=== PATIENT | male | born 1980 | race Caucasian/White ===

== ENCOUNTER 2019-06-14 09:56 | Outpatient (CLI) | payer MEDICARE, MEDICAID, SELFPAY ==
--- NOTE | ~2019-06-14 | CT_ITS ---
EXAMINATION: CT brain wo/w con EXAM DATE: 06/14/2019 10:59 INDICATION: Temporary in awareness, hallucination. TECHNIQUE: Spiral CT of the head was performed without contrast. Axial, coronal and sagittal images were reviewed. Patient was then injected with 100 cc Omnipaque 350 intravenous contrast and reimaged. Postcontrast axial, coronal, sagittal reformatted images reviewed. The dose-length product (DLP) fo r this examination was 1210.67 mGy-cm. The exposure was tailored according to patient size, and iter ative reconstruction (ASIR) was used as additional dose reduction technique. There is no prior study for comparison. 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 This is a congenital finding. There is a thin corpus callosum. There are prominent bilateral ex tra-axial spaces. There is a right frontal ventricular shunt with decompressed ventricles. There is a nother structure which could be a shunt tip in the right frontal horn of the lateral ventricle. No ac lizette intracranial hemorrhage. No evidence of brain mass. There are no areas of abnormal enhancement on the post contrast images. IMPRESSION: 1. No acute intracranial findings. Right frontal shunt in position. Another shunt tip in right later al ventricle. 2. 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 Reviewed, dictated and finalized at location A. OMER PROFESSIONAL IMPRESSION: 1. No acute intracranial findings. Right frontal shunt in position. Another sh unt tip in right lateral ventricle. 2. 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
--- NOTE | ~2019-06-14 | XR_ITS ---
XR shunt series 06/14/2019 10:30 Indication: Hallucinations. Procedure: Shunt series including images of the skull, neck, chest, abdomen and pelvis Comparison: CT dated 06/14/2009 Findings: There is a ventriculoperitoneal shunt extending from the intracranial ventricular system al grzegorz the right head, neck and chest extending into the abdomen. The distal aspect of the shunt is coil ed in the pelvis. No evidence for shunt discontinuity. There is a residual segment of catheter overly ing the right neck at the mastoid level. Lung parenchyma is unremarkable. Bowel pattern is nonobstruc tive. No acute osseous abnormality. Impression: 1: Unremarkable ventriculoperitoneal shunt. No evidence for discontinuity. Reviewed, dictated and finalized at location A. GLOSSER Impression: 1: Unremarkable ventriculoperitoneal shunt. No evidence for discontinuity.
== END 2019-06-14 09:57 | disposition home or self-care (01) ==
PROVIDERS: PCP Internal Medicine; Visit Provider Psychiatry & Neurology Neurology
DX: R44.3 Hallucinations, unspecified (principal); G93.5 Compression of brain
CPT/HCPCS: 70250; 70470; 71045; 74018; Q9967

== ENCOUNTER 2020-11-13 01:16 | Day surgery (SDC) | payer MEDICARE, MEDICAID, SELFPAY ==
[2020-11-06 09:57] VITALS: BMI 30.6
--- NOTE | 2020-11-12 08:57 | PC.NURSE ---
DR. 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
[2020-11-13] MEDS: LACTATED RINGERS 1,000 ML 150 ML IV CONT (09:21)
[2020-11-13 09:25] VITALS: BP 116/65; PULSE 79; RESP 18; TEMP 36.1; O2SAT 96; BMI 29.8
--- NOTE | 2020-11-13 10:01 | WPDANESEPPF ---
Anes - Initial Pre Proc Eval Procedure: Operation Date: 11/13/20 09:30 Proposed Procedures p Esophagogastroduodenoscopy - Milton Roberto MD Date/Time: 11/13/20 10:01 Surgeon: Milton Roberto MD Pre Op Diagnosis: GERD Patient Data Age: 40 Gender: M Height: 1.63 m Weight: 78.8 kg Last Vital Signs Temp 96.9 F L 11/13/20 09:25 Pulse 79 11/13/20 09:25 Resp 18 11/13/20 09:25 BP 116/65 11/13/20 09:25 Pulse Ox 96 11/13/20 09:25 Allergies Allergy/AdvReac Type Severity Reaction Status Date / Time banana Allergy Mild runny Verified 11/13/20 09:22 stools latex Allergy Unknown Hives Verified 11/13/20 09:22 Sulfa (Sulfonamide Allergy Unknown rash Verified 11/13/20 09:22 Antibiotics) Home Medications Medication Instructions Recorded Confirmed Type acetaminophen 325 mg tablet 650 mg PO Q4H PRN tablet 04/11/19 11/06/20 History alendronate 70 mg tablet 70 mg PO WEEKLY 04/11/19 11/06/20 History cetirizine 10 mg tablet 10 mg PO DAILY 04/11/19 11/06/20 History fluoxetine 40 mg capsule 40 mg PO QAM 04/11/19 11/06/20 History olanzapine 20 mg tablet 20 mg PO HS 04/11/19 11/06/20 History baclofen 10 mg tablet 10 mg PO Q8H PRN tablet 02/28/20 11/06/20 History pantoprazole 40 mg tablet,delayed 40 mg PO QAM #90 tablet 02/28/20 11/06/20 Rx release tramadol 50 mg tablet 50 mg PO Q8H PRN #30 tablet 09/11/20 11/06/20 Rx divalproex 250 mg tablet,delayed 250 mg PO QPM tablet 09/23/20 11/06/20 History release magnesium hydroxide 400 mg/5 mL 30 ml PO DAILY PRN 09/23/20 11/06/20 History oral suspension alum-mag hydroxide-simeth 15 ml PO Q2H PRN 11/06/20 11/06/20 History [Olimpia-Lanta] cholecalciferol (vitamin D3) 125 mcg PO DAILY 11/06/20 11/06/20 History [Vitamin D3] dextromethorphan-guaifenesin 15 ml PO Q4H PRN 11/06/20 11/06/20 History [Robafen DM Cough-Chest Congest] docusate sodium 100 mg PO BID PRN 11/06/20 11/06/20 History fluticasone propionate 1 spray INTRANASAL DAILY 11/06/20 11/06/20 History lorazepam 1 mg tablet 1.5 mg PO QHS #45 tablet 11/06/20 11/13/20 Rx melatonin 5 mg PO HS 11/06/20 11/06/20 History multivitamin with folic acid 1 tablet PO DAILY 11/06/20 11/06/20 History [Tab-A-Hemant] polyethylene glycol 3350 17 g PO 2XW PRN 11/06/20 11/06/20 History sennosides [senna] 17.2 mg PO DAILY PRN 11/06/20 11/06/20 History Patient hx anesthesia problems: none Family hx anesthesia problems: none PMFSH Past Medical History Medical History (Updated 11/13/20 @ 10:01 by Matthew Arthur MD) Cerebral palsy Gastro-esophageal reflux disease without esophagitis Post-traumatic stress disorder, unspecified Spina bifida, unspecified Surgical History Surgical History (Updated 11/13/20 @ 10:01 by Matthew Arthur MD) History of brain shunt Family History Family History Mother Diabetes mellitus Family history of bipolar disorder Family history of type 2 diabetes mellitus Father Family history of bipolar disorder Sibling Family history of bipolar disorder Family history of gastrointestinal disorder Social History Social History (Updated 10/16/20 @ 13:00 by Elizabeth Arthur MA) Smoking packs per day: 0.40 Smoking cigarettes per day: 8.0 Years smoked: 15 Smoking pack-years: 6.00 Smoking status: Current some day smoker Tobacco type: cigars Second hand tobacco smoke exposure: No Alcohol intake: never Substance use: never Substance use type: does not use Living arrangements: with roommate(s) Spiritual care concerns: No Anes - Eval Final PreProcedure Day of Procedure 11/13/20 10:01 Patient weight: normal Heart: regular rate and rhythm Lungs: clear to auscultation Airway: Mallampati scale class II Neurological: alert and oriented Last oral intake: >/= 8 hours ASA classification: III Emergent: no Anesthetic plan: proceed Anesthesia type and monitoring: general GIVS and saleem
--- NOTE | 2020-11-13 10:07 | PM.HPGS ---
History of Present Illness History of Present Illness Consent: Risks, benefits, and alternatives have been discussed and questions answered. Patient agrees to proceed with procedure. Chief complaint: GERD Narrative: Sid Lopez is a 40 year old male referred for investigation of anemia, suspected gastrointestinal blood loss Review of Systems Review of Systems: All systems reviewed & are unremarkable except as noted in HPI and below PMFSH Past Medical History Medical History Cerebral palsy Gastro-esophageal reflux disease without esophagitis Post-traumatic stress disorder, unspecified Spina bifida, unspecified Surgical History Surgical History History of brain shunt Family History Family History Mother Diabetes mellitus Family history of bipolar disorder Family history of type 2 diabetes mellitus Father Family history of bipolar disorder Sibling Family history of bipolar disorder Family history of gastrointestinal disorder Social History Social History Smoking packs per day: 0.40 Smoking cigarettes per day: 8.0 Years smoked: 15 Smoking pack-years: 6.00 Smoking status: Current some day smoker Tobacco type: cigars Second hand tobacco smoke exposure: No Alcohol intake: never Substance use: never Substance use type: does not use Living arrangements: with roommate(s) Spiritual care concerns: No Meds Home Medications and Allergies Home Medications Medication Instructions Recorded Confirmed Type acetaminophen 325 mg tablet 650 mg PO Q4H PRN tablet 04/11/19 11/06/20 History alendronate 70 mg tablet 70 mg PO WEEKLY 04/11/19 11/06/20 History cetirizine 10 mg tablet 10 mg PO DAILY 04/11/19 11/06/20 History fluoxetine 40 mg capsule 40 mg PO QAM 04/11/19 11/06/20 History olanzapine 20 mg tablet 20 mg PO HS 04/11/19 11/06/20 History baclofen 10 mg tablet 10 mg PO Q8H PRN tablet 02/28/20 11/06/20 History pantoprazole 40 mg tablet,delayed 40 mg PO QAM #90 tablet 02/28/20 11/06/20 Rx release tramadol 50 mg tablet 50 mg PO Q8H PRN #30 tablet 09/11/20 11/06/20 Rx divalproex 250 mg tablet,delayed 250 mg PO QPM tablet 09/23/20 11/06/20 History release magnesium hydroxide 400 mg/5 mL 30 ml PO DAILY PRN 09/23/20 11/06/20 History oral suspension alum-mag hydroxide-simeth 15 ml PO Q2H PRN 11/06/20 11/06/20 History [Olimpia-Lanta] cholecalciferol (vitamin D3) 125 mcg PO DAILY 11/06/20 11/06/20 History [Vitamin D3] dextromethorphan-guaifenesin 15 ml PO Q4H PRN 11/06/20 11/06/20 History [Robafen DM Cough-Chest Congest] docusate sodium 100 mg PO BID PRN 11/06/20 11/06/20 History fluticasone propionate 1 spray INTRANASAL DAILY 11/06/20 11/06/20 History lorazepam 1 mg tablet 1.5 mg PO QHS #45 tablet 11/06/20 11/13/20 Rx melatonin 5 mg PO HS 11/06/20 11/06/20 History multivitamin with folic acid 1 tablet PO DAILY 11/06/20 11/06/20 History [Tab-A-Hemant] polyethylene glycol 3350 17 g PO 2XW PRN 11/06/20 11/06/20 History sennosides [senna] 17.2 mg PO DAILY PRN 11/06/20 11/06/20 History Allergies Allergy/AdvReac Type Severity Reaction Status Date / Time banana Allergy Mild runny Verified 11/13/20 09:22 stools latex Allergy Unknown Hives Verified 11/13/20 09:22 Sulfa (Sulfonamide Allergy Unknown rash Verified 11/13/20 09:22 Antibiotics) Vital Signs Vital Signs - 24 hr 11/13/20 09:25 Temperature 36.1 C L Pulse Rate 79 Respiratory Rate 18 Blood Pressure 116/65 Pulse Oximetry 96 Exam Const: General: alert Orientation/consciousness: patient oriented x3 Resp: Auscultation: clear to auscultation bilaterally Cardio: Rhythm: regular rhythm GI: GI Palp: Yes Soft to palpation and No Tenderness to palpation present (GI) Neuro: General: p
[2020-11-13 10:18] VITALS: BP 102/68; PULSE 71; RESP 19; O2SAT 93
[2020-11-13 10:28] VITALS: BP 103/68; PULSE 72; RESP 19; O2SAT 95
== END 2020-11-13 11:00 | disposition home or self-care (01) ==
PROVIDERS: PCP Internal Medicine; Visit Provider Internal Medicine Gastroenterology
PROC: 0DJ08ZZ Inspection of Upper Intestinal Tract, Via Natural or Artificial Opening Endoscopic (ICD-10-PCS; CPT 43235; principal; 2020-11-13 09:30)
DX: D50.9 Iron deficiency anemia, unspecified (principal); K21.9 Gastro-esophageal reflux disease without esophagitis; G80.9 Cerebral palsy, unspecified; F43.10 Post-traumatic stress disorder, unspecified; Q05.9 Spina bifida, unspecified; F17.210 Nicotine dependence, cigarettes, uncomplicated
CPT/HCPCS: 43239; 88305; J2704; J7120

== ENCOUNTER 2020-11-30 10:00 | Outpatient (CLI) | payer MEDICARE, MEDICAID, SELFPAY ==
--- NOTE | ~2020-11-30 | DEXA_ITS ---
Bone Density Report Name: Sid Lopez Age: 40 Sex: Male Ethnicity: White Date of : 1980 Indication: osteopenia; monitoring treatment; height loss; prior fracture; seizure disorder; Referring Provider: BALDEMAR ONEAL Study: Bone densitometry was performed. Exam Date: November 30, 2020 Accession number: [id number] Bone Density: Region BMD T-score Z-score Classification AP Spine (L1-L4) 0.823 -2.4 -2.3 Osteopenia Femoral Neck (Left) 0.603 -2.4 -1.9 Osteopenia Total Hip (Left) 0.669 -2.4 -2.2 Osteopenia Total Hip Bilateral Avg 0.716 -2.1 -1.9 Osteopenia Femoral Neck (Right) 0.611 -2.3 -1.9 Osteopenia Total Hip (Right) 0.761 -1.8 -1.6 Osteopenia World Health Organization criteria for BMD impression classify patients as: Normal (T-score at or above -1.0), Osteopenia (T-score between -1.0 and -2.5), or Osteoporosis (T-score at or below -2.5). 10-year Fracture Risk: FRAX not reported because: Man under age 50 Treated for osteoporosis Previous Exams: Region Exam Age BMD T-score BMD Change BMD Change Date g/cm2 vs Baseline vs Previous AP Spine(L1-L4) 11/30/2020 40 0.823 -2.4 -0.062(-7.0%)# -0.062(-7.0%)# 10/23/2017 37 0.885 -1.9 Total Hip(Left) 11/30/2020 40 0.669 -2.4 -0.064(-8.7%)* -0.064(-8.7%)* 10/23/2017 37 0.733 -2.0 Total Hip(Right) 11/30/2020 40 0.761 -1.8 0.010(1.3%) 0.010(1.3%) 10/23/2017 37 0.752 -1.9 *Denotes significance at 95% confidence level, LSC for AP Spine = 0.022 g/cm2, LSC for Total Hip = 0.027 g/cm2 Clinical Information Provided by Patient: Has had a low trauma fracture Smokes Is being treated for osteoporosis Has used the following medications: Vitamin D, Calcium Has the following medical conditions: Any Seizure Disorders Patient maximum height was 67 No regular weight bearing exercise Drinks caffeinated beverages Impression: The patient's bone mass is below expected range for age, gender and ethnicity based on the Total Spine Z-score. The patient has risk factors, including: smoking, previous fracture. The BMD for the Total Hip(Left) decreased, changing by -8.7% since the last DXA exam. Discussion: SIGNIFICANT BONE LOSS OBSERVED. Adherence to therapy (including calcium and vitamin D intake) should be assessed. If compliance is not a factor, review management and exclusion of secondary causes of bone loss. It is important to ask patients whether they are taking their medications and to encourage continued
== END 2020-11-30 10:01 | disposition home or self-care (01) ==
LOC: ANHIMG 10:01
PROVIDERS: PCP Internal Medicine; Visit Provider Internal Medicine
DX: M81.0 Age-related osteoporosis without current pathological fracture (principal); M85.89 Other specified disorders of bone density and structure, multiple sites
CPT/HCPCS: 77080

== ENCOUNTER 2023-01-04 12:37 | Emergency (ER) | payer MEDICARE, MEDICAID, SELFPAY ==
--- NOTE | ~2023-01-04 | CT_ITS ---
EXAMINATION: CT abdomen pelvis w con DATE: 01/04/2023 14:21 INDICATION: Abdomen pain. Tarry stools. TECHNIQUE: Computed tomography (CT) of the abdomen and pelvis was performed with 100 cc Omnipaque 350 intravenous contrast. The dose-length product was 455.72 mGy-cm. Automated exposure control and iterative reconstruction technique were employed. COMPARISON: None. FINDINGS: Lung bases unremarkable. Heart size normal. No significant pleural or pericardial effusion. Fatty infiltration of the liver. The spleen, pancreas, adrenal glands and kidneys are unremarkable. Gallbladder is present. There is a ventral hernia containing fat and nonobstructed segment of colon. There is a ventriculoperitoneal shunt coiled in the pelvis. Small amount of free fluid in the pelvis. Moderate colonic fecal loading in the distal colon and rectum. No free air. No significant vascular abnormality. Bladder wall is thickened. No lymphadenopathy. IMPRESSION: 1. Bladder wall thickening, suspicious for cystitis. Small amount of free fluid in the pelvis. 2: Ventral abdominal wall hernia containing fat and nonobstructed colon. Reviewed, dictated and finalized at location B.
[2023-01-04 12:46] VITALS: BP 120/75; PULSE 89; RESP 20; TEMP 36.8; O2SAT 99
[2023-01-04 13:16] LABS: Basophils Percent Auto 0.6 % (0.2-1.2); Eosinophils Absolute Auto 0.3 K/mm3 (0-0.3); Eosinophils Percent Auto 4.5 % (0-4.4); Hematocrit 43.5 % (42.0-52.0); Hemoglobin 14.2 g/dL (14.0-18.0); Immature Granulocyte Absolute 0.02 K/mm3 (0.00-0.031); Immature Granulocyte Percent A 0.3 % (0-0.5); Lymphocytes Absolute Auto 1.22 K/mm3 (0.9-3.2); Lymphocytes Percent Auto 18.7 % (18.3-44.2); Mean Corpuscular HGB Conc 32.6 g/dl (32-36); Mean Corpuscular Hemoglobin 32.6 pg (26-34); Mean Platelet Volume 9.2 fl (7.4-10.4); Monocytes Absolute Auto 0.5 K/mm3 (0.1-0.6); Monocytes Percent Auto 8.3 % (2.6-8.5); Neutrophils Absolute Auto 4.4 K/mm3 (1.3-6.7); Neutrophils Percent Auto 67.6 % (45.5-73.1); Platelet Count Result 270 k/mm3 (150-375); Red Blood Count 4.35 M/mm3 (4.6-6.20); White Blood Count 6.5 K/mm3 (4.5-10.0)
[2023-01-04 13:29] LABS: INR 0.9
[2023-01-04 13:30] LABS: Alanine Aminotransferase 16 U/L (6-50); Albumin Level 4.7 g/dL (3.5-5.1); Alkaline Phosphatase 78 U/L (38-126); Anion Gap 7 mmol/L (8-16); Aspartate Amino Transferase 20 U/L (17-59); Bilirubin,Total 0.4 mg/dL (0.2-1.3); Blood Urea Nitrogen 15 mg/dL (9-20); Calcium 9.3 mg/dL (8.4-10.2); Carbon Dioxide 27 mmol/L (22-30); Chloride 106 mmol/L (98-107); Estimated CRCL calculation 82 ml/min; Estimated Glomerular Filt Rate > 60; Glucose 90 mg/dL (65-110); Sodium 140 mmol/L (137-145)
[2023-01-04 13:46] VITALS: BP 124/87; PULSE 75; RESP 18; O2SAT 99
--- NOTE | 2023-01-04 14:07 | ED.GIBLEED ---
HPI - GI Bleed General Chief complaint: GI Bleed Stated complaint: Blood in stool Time Seen by Provider: 01/04/23 13:50 History of Present Illness HPI Narrative: 41-year-old male with a history of cerebral palsy, spina bifida, GERD presents to the emergency room for evaluation of left lower abdominal pain and possible bloody stools. Patient states that he has had multiple large stools this morning, noticed the color of one of his stools was black and tarry. States has a history of the black tarry stool, was found that he had an internal hemorrhoid. Related Data Home Medications Medication Instructions Recorded Confirmed fluoxetine 40 mg capsule 40 mg PO QAM 04/11/19 10/03/22 baclofen 10 mg tablet 10 mg PO Q8H PRN pain 02/28/20 10/03/22 magnesium hydroxide 400 mg/5 mL 30 ml PO DAILY PRN Constipation 09/23/20 10/03/22 oral suspension (Milk of Magnesia) cholecalciferol (vitamin D3) 125 125 mcg PO DAILY 11/06/20 10/03/22 mcg (5,000 unit) tablet (Vitamin D3) melatonin 5 mg tablet 5 mg PO HS 11/06/20 10/03/22 multivitamin with folic acid 400 1 tablet PO DAILY 11/06/20 10/03/22 mcg tablet (Tab-A-Hemant) bisacodyl 10 mg rectal suppository 10 mg RECTAL .COMPLEX PRN 03/08/22 10/03/22 (Dulcolax (bisacodyl)) cetirizine 10 mg tablet 10 mg PO DAILY PRN 09/12/22 10/03/22 lamotrigine 100 mg tablet 100 mg PO DAILY 09/12/22 10/03/22 olanzapine 10 mg tablet 30 mg PO DAILY 09/12/22 10/03/22 docusate sodium 100 mg tablet 100 mg PO DAILY 10/03/22 10/03/22 Allergies Allergy/AdvReac Type Severity Reaction Status Date / Time banana Allergy Mild runny Verified 01/04/23 13:35 stools latex Allergy Unknown Hives Verified 01/04/23 13:35 Sulfa (Sulfonamide Allergy Unknown rash Verified 01/04/23 13:35 Antibiotics) Review of Systems Review of Systems: CONSTITUTIONAL: Denies fever, chills, or sweats. EYES: Denies visual changes, redness, or discharge. ENT: Denies rhinorrhea, congestion, sore throat, or otalgia. CARDIOVASCULAR: Denies chest pain, palpitations, or edema. RESPIRATORY: Denies cough or dyspnea. GASTROINTESTINAL: Reports abdominal pain, GENITOURINARY: Denies dysuria or hematuria. SKIN: Denies rash or itching. MUSCULOSKELETAL: Denies back pain, joint pain, or myalgia. NEUROLOGIC: Denies headache, numbness, dizziness, or weakness. PSYCHIATRIC: Denies anxiety or depression. PMFSH Past Medical History Medical History Cerebral palsy Gastro-esophageal reflux disease without esophagitis Post-traumatic stress disorder, unspecified Spina bifida, unspecified Surgical History Surgical History History of brain shunt Family History Family History Mother Diabetes mellitus Family history of bipolar disorder Family history of type 2 diabetes mellitus Asthma Father Family history of bipolar disorder Sibling Family history of bipolar disorder Family history of gastrointestinal disorder Social History Social History Social History: Caffeine-coffee Years smoked: 15 Smoking status: Current every day smoker Tobacco type: cigarettes Second hand tobacco smoke exposure: Yes Alcohol intake: never Substance use: never Substance use type: does not use Lack of Transportation: No Lack of Food: Often True Current Housing: I Have Housing Concerned About Future Housing: YES Difficulty Paying Gas/Electric Bills: YES Difficulty Paying for Meds: YES Currently Unemployed: YES Education: High School Diploma/GED Difficulty w/ Childcare or Family Care: No Living arrangements: with roommate(s) Spiritual care concerns: No Exam Narrative: GENERAL: Well-appearing, well-nourished, no physical limitations, and in no acute distress. HEAD: Normocephalic, atraumatic. EYES: C
--- NOTE | 2023-01-04 14:13 | PC.NURSE ---
Pt to CT scan via stretcher at this time.
[2023-01-04 14:37] VITALS: BP 107/73; PULSE 81; RESP 22; O2SAT 99
[2023-01-04 15:18] LABS: Appearance Urine Clear (Clear); Bilirubin Urine Negative (Negative); Blood Urine Negative (Negative); Color Urine Yellow (Yellow); Glucose Urine UA Negative (Negative); Ketones Urine Negative (Negative); Leukocyte Esterase Ur Negative LEU/UL (Negative); Nitrate Urine Negative (Negative); Protein Urine Negative (Negative); Urobilinogen Urine 0.2 mg/dL (<2.0); pH Urine 6.5 (5.0-9.0)
[2023-01-04 15:30] LABS: Add Urine Microscopic? NO; Specific Grav Ur 1.059 (1.001-1.035)
[2023-01-04 15:49] VITALS: BP 122/80; PULSE 81; RESP 21; O2SAT 99
== END 2023-01-04 16:13 | disposition home or self-care (01) ==
PROVIDERS: Emergency Medicine; Emergency Provider Nurse Practitioner Family; PCP Family Medicine
DX: N30.90 Cystitis, unspecified without hematuria (principal); R10.33 Periumbilical pain; R19.7 Diarrhea, unspecified; G80.9 Cerebral palsy, unspecified; Q05.9 Spina bifida, unspecified; K21.9 Gastro-esophageal reflux disease without esophagitis; F43.10 Post-traumatic stress disorder, unspecified; F17.210 Nicotine dependence, cigarettes, uncomplicated
CPT/HCPCS: 36415; 74177; 80053; 81003; 85025; 85610; 85730; 86850; 86900; 86901; 99284; Q9967

== ENCOUNTER 2023-07-05 02:17 | Day surgery (SDC) | payer MEDICARE, MEDICAID, SELFPAY ==
--- NOTE | 2023-04-21 15:49 | PM.HPGS ---
History of Present Illness History of Present Illness Consent: Risks, benefits, and alternatives have been discussed and questions answered. Patient agrees to proceed with procedure. Chief complaint: Hemorrhage of anus and rectum Narrative: Sid Lopez is a 43 year old male Referred for colonoscopy due to rectal bleeding. About 5 years ago he underwent examination for similar symptoms and was found to have internal hemorrhoids. [facility] Past Medical History Medical History Cerebral palsy Gastro-esophageal reflux disease without esophagitis Post-traumatic stress disorder, unspecified Spina bifida, unspecified Surgical History Surgical History History of brain shunt Family History Family History Mother Diabetes mellitus Family history of bipolar disorder Family history of type 2 diabetes mellitus Asthma Lupus Father Family history of bipolar disorder Sibling Family history of bipolar disorder Family history of gastrointestinal disorder Social History Social History Social History: Caffeine-coffee Years smoked: 15 Smoking status: Current every day smoker Tobacco type: cigarettes Second hand tobacco smoke exposure: Yes Alcohol intake: never Substance use: never Substance use type: does not use Lack of Transportation: No Lack of Food: Often True Current Housing: I Have Housing Concerned About Future Housing: YES Difficulty Paying Gas/Electric Bills: YES Difficulty Paying for Meds: YES Currently Unemployed: YES Education: High School Diploma/GED Difficulty w/ Childcare or Family Care: No Living arrangements: with roommate(s) Spiritual care concerns: No Meds Home Medications and Allergies Home Medications Medication Instructions Recorded Confirmed Type fluoxetine 40 mg capsule 40 mg PO QAM 04/11/19 03/02/23 History baclofen 10 mg tablet 10 mg PO Q8H PRN pain 02/28/20 03/02/23 History pantoprazole 40 mg tablet,delayed 40 mg PO QAM #90 tabs 02/28/20 03/02/23 Rx release magnesium hydroxide 400 mg/5 mL 30 ml PO DAILY PRN Constipation 09/23/20 03/02/23 History oral suspension (Milk of Magnesia) cholecalciferol (vitamin D3) 125 125 mcg PO DAILY 11/06/20 03/02/23 History mcg (5,000 unit) tablet (Vitamin D3) melatonin 5 mg tablet 5 mg PO HS 11/06/20 03/02/23 History multivitamin with folic acid 400 1 tablet PO DAILY 11/06/20 03/02/23 History mcg tablet (Tab-A-Hemant) lorazepam 1 mg tablet 1.5 mg PO QHS #45 tabs 12/09/20 03/02/23 Rx bisacodyl 10 mg rectal suppository 10 mg RECTAL .COMPLEX PRN 03/08/22 03/02/23 History (Dulcolax (bisacodyl)) cetirizine 10 mg tablet 10 mg PO DAILY PRN 09/12/22 03/02/23 History lamotrigine 100 mg tablet 100 mg PO DAILY 09/12/22 03/02/23 History olanzapine 10 mg tablet 30 mg PO DAILY 09/12/22 03/02/23 History docusate sodium 100 mg tablet 100 mg PO DAILY 10/03/22 03/02/23 History amoxicillin 875 mg-potassium 1 tablet PO Q12H #14 tabs 04/12/23 04/12/23 Rx clavulanate 125 mg tablet Allergies Allergy/AdvReac Type Severity Reaction Status Date / Time banana Allergy Mild runny Verified 04/12/23 09:38 stools latex Allergy Unknown Hives Verified 04/12/23 09:38 Sulfa (Sulfonamide Allergy Unknown rash Verified 04/12/23 09:38 Antibiotics) Assessment and Plan Assessment and plan (1) Rectal bleeding: Code(s): K62.5 - Hemorrhage of anus and rectum Status: Acute Assessment and Plan: Colonoscopy with possible biopsy or polypectomy or cautery or injection of substances.
--- NOTE | 2023-07-03 09:14 | SUR.PREOP ---
Patient called regarding upcoming procedure. Voicemail left regarding appointment times.
[2023-07-05 10:44] VITALS: BP 110/69; RESP 18; TEMP 36.2; O2SAT 96; BMI 28.9
[2023-07-05] MEDS: LACTATED RINGERS 1,000 ML 150 ML IV CONT (10:58)
--- NOTE | 2023-07-05 11:03 | WPDANESEPPF ---
Anes - Initial Pre Proc Eval Procedure: Operation Date: 07/05/23 11:30 Proposed Procedures p Colonoscopy - Remi Lowe MD Date/Time: 07/05/23 11:03 Surgeon: Remi Lowe MD Pre Op Diagnosis: Hemorrhage of anus and rectum Patient Data Age: 43 Gender: M Height: 1.68 m Weight: 81.3 kg Last Vital Signs Temp 97.1 F L 07/05/23 10:44 Resp 18 07/05/23 10:44 BP 110/69 07/05/23 10:44 Pulse Ox 96 07/05/23 10:44 O2 Del Method Room Air 07/05/23 10:44 Allergies Allergy/AdvReac Type Severity Reaction Status Date / Time latex Allergy Intermediate Hives Verified 07/05/23 10:42 Sulfa (Sulfonamide Allergy Intermediate rash Verified 07/05/23 10:42 Antibiotics) banana AdvReac Mild runny Verified 07/05/23 10:42 stools Home Medications Medication Instructions Recorded Confirmed Type fluoxetine 40 mg capsule 40 mg PO QAM 04/11/19 07/05/23 History baclofen 10 mg tablet 10 mg PO Q8H PRN Muscle Spasm 02/28/20 07/03/23 History cholecalciferol (vitamin D3) 125 125 mcg PO DAILY 11/06/20 07/03/23 History mcg (5,000 unit) tablet (Vitamin D3) melatonin 5 mg tablet 5 mg PO HS 11/06/20 07/03/23 History multivitamin with folic acid 400 1 tablet PO DAILY 11/06/20 07/05/23 History mcg tablet (Tab-A-Hemant) cetirizine 10 mg tablet 10 mg PO DAILY 09/12/22 07/05/23 History lamotrigine 100 mg tablet 100 mg PO BID 09/12/22 07/05/23 History olanzapine 10 mg tablet 10 mg PO QAM 09/12/22 07/03/23 History docusate sodium 100 mg tablet 100 mg PO BID PRN soften stool 10/03/22 07/03/23 History bdpfnydk-semzfhubr-sktngnjdx 3.5 4 drp otic (ear) Q8H #10 mL 06/26/23 07/03/23 Rx mg-10,000 unit/mL-1 % ear drops,susp acetaminophen 325 mg tablet 325 mg PO Q4H PRN Pain 07/03/23 07/03/23 History aluminum-mag hydroxide-simethicone 15 ml PO Q2H PRN 07/03/23 07/03/23 History 200 mg-200 mg-20 mg/5 mL oral susp Indigestion/heartburn (Antacid-[place]) buspirone 15 mg tablet 15 mg PO BID 07/03/23 07/03/23 History camphor-eucalyptus oil-menthol 4.8 1 applic topical BID 07/03/23 07/03/23 History %-1.2 %-2.6 % topical ointment (Vaporx [place]) dextromethorphan-guaifenesin 10 15 ml PO Q4H PRN Cough 07/03/23 07/03/23 History mg-100 mg/5 mL oral syrup (Chest Congestion Relief DM) lorazepam 0.5 mg tablet 0.5 mg PO BID 07/03/23 07/05/23 History neomycin-bacitracn Zn-polymyx 3.5 1 applic topical BID PRN 07/03/23 07/03/23 History mg-400 unit-5,000 unit/gram top wounds/abrasions oint (Triple Antibiotic) nystatin 100,000 unit/gram topical 1 applic topical BID 07/03/23 07/03/23 History cream olanzapine 20 mg tablet 20 mg PO HS 07/03/23 07/03/23 History pantoprazole 40 mg tablet,delayed 40 mg PO BID 07/03/23 07/05/23 History release zinc oxide 20 % topical ointment 1 applic topical DAILY 07/03/23 07/03/23 History Patient hx anesthesia problems: none Family hx anesthesia problems: none Results Review: All pre-operative results and documents have been reviewed as part of the pre-operative evaluation. [facility] Past Medical History Medical History Cerebral palsy Gastro-esophageal reflux disease without esophagitis Post-traumatic stress disorder, unspecified Spina bifida, unspecified Surgical History Surgical History History of brain shunt Family History Family History Mother Diabetes mellitus Family history of bipolar disorder Family history of type 2 diabetes mellitus Asthma Lupus Father Family history of bipolar disorder Sibling Family history of bipolar disorder Family history of gastrointestinal disorder Social History Social History Social History: Caffeine-coffee Years smoked: 15 Smoking status: Current every day smoker Tobac
--- NOTE | 2023-07-05 11:21 | PM.HPGS ---
History of Present Illness History of Present Illness Consent: Risks, benefits, and alternatives have been discussed and questions answered. Patient agrees to proceed with procedure. Chief complaint: Hemorrhage of anus and rectum Narrative: Sid Lopez is a 43 year old male with intermittent blood in stools, last colonoscopy 2018 Review of Systems Review of Systems: All systems reviewed & are unremarkable except as noted in HPI and below PMFSH Past Medical History Medical History (Updated 07/05/23 @ 11:22 by Remi Lowe MD) Cerebral palsy Gastro-esophageal reflux disease without esophagitis Hematochezia Post-traumatic stress disorder, unspecified Spina bifida, unspecified Surgical History Surgical History History of brain shunt Family History Family History Mother Diabetes mellitus Family history of bipolar disorder Family history of type 2 diabetes mellitus Asthma Lupus Father Family history of bipolar disorder Sibling Family history of bipolar disorder Family history of gastrointestinal disorder Social History Social History Social History: Caffeine-coffee Years smoked: 15 Smoking status: Current every day smoker Tobacco type: cigarettes Second hand tobacco smoke exposure: Yes Alcohol intake: never Substance use: never Substance use type: does not use Lack of Transportation: No Lack of Food: Often True Current Housing: I Have Housing Concerned About Future Housing: YES Difficulty Paying Gas/Electric Bills: YES Difficulty Paying for Meds: YES Currently Unemployed: YES Education: High School Diploma/GED Difficulty w/ Childcare or Family Care: No Living arrangements: with roommate(s) Spiritual care concerns: No Meds Home Medications and Allergies Home Medications Medication Instructions Recorded Confirmed Type fluoxetine 40 mg capsule 40 mg PO QAM 04/11/19 07/05/23 History baclofen 10 mg tablet 10 mg PO Q8H PRN Muscle Spasm 02/28/20 07/03/23 History cholecalciferol (vitamin D3) 125 125 mcg PO DAILY 11/06/20 07/03/23 History mcg (5,000 unit) tablet (Vitamin D3) melatonin 5 mg tablet 5 mg PO HS 11/06/20 07/03/23 History multivitamin with folic acid 400 1 tablet PO DAILY 11/06/20 07/05/23 History mcg tablet (Tab-A-Hemant) cetirizine 10 mg tablet 10 mg PO DAILY 09/12/22 07/05/23 History lamotrigine 100 mg tablet 100 mg PO BID 09/12/22 07/05/23 History olanzapine 10 mg tablet 10 mg PO QAM 09/12/22 07/03/23 History docusate sodium 100 mg tablet 100 mg PO BID PRN soften stool 10/03/22 07/03/23 History fktcvthr-miecoqzyy-npghhmdlc 3.5 4 drp otic (ear) Q8H #10 mL 06/26/23 07/03/23 Rx mg-10,000 unit/mL-1 % ear drops,susp acetaminophen 325 mg tablet 325 mg PO Q4H PRN Pain 07/03/23 07/03/23 History aluminum-mag hydroxide-simethicone 15 ml PO Q2H PRN 07/03/23 07/03/23 History 200 mg-200 mg-20 mg/5 mL oral susp Indigestion/heartburn (Antacid-[place]) buspirone 15 mg tablet 15 mg PO BID 07/03/23 07/03/23 History camphor-eucalyptus oil-menthol 4.8 1 applic topical BID 07/03/23 07/03/23 History %-1.2 %-2.6 % topical ointment (Vaporx Start) dextromethorphan-guaifenesin 10 15 ml PO Q4H PRN Cough 07/03/23 07/03/23 History mg-100 mg/5 mL oral syrup (Chest Congestion Relief DM) lorazepam 0.5 mg tablet 0.5 mg PO BID 07/03/23 07/05/23 History neomycin-bacitracn Zn-polymyx 3.5 1 applic topical BID PRN 07/03/23 07/03/23 History mg-400 unit-5,000 unit/gram top wounds/abrasions oint (Triple Antibiotic) nystatin 100,000 unit/gram topical 1 applic topical BID 07/03/23 07/03/23 History cream olanzapine 20 mg tablet 20 mg PO HS 07/03/23 07/03/23 History pantoprazole 40 mg tablet,delayed 40 mg PO BID 07/03/23 07/05/23 History release zinc oxide 20 %
[2023-07-05 11:50] VITALS: BP 83/52; PULSE 70; RESP 12; O2SAT 98
[2023-07-05 12:00] VITALS: BP 98/62; PULSE 78; RESP 15; O2SAT 100
[2023-07-05 12:10] VITALS: BP 100/67; PULSE 73; RESP 20; O2SAT 100
== END 2023-07-05 12:20 | disposition home or self-care (01) ==
PROVIDERS: PCP Nurse Practitioner; Visit Provider Internal Medicine Gastroenterology
PROC: 0DJD8ZZ Inspection of Lower Intestinal Tract, Via Natural or Artificial Opening Endoscopic (ICD-10-PCS; CPT 45378; principal; 2023-07-05 11:30)
DX: D12.4 Benign neoplasm of descending colon (principal); D12.3 Benign neoplasm of transverse colon; Q05.9 Spina bifida, unspecified; K21.9 Gastro-esophageal reflux disease without esophagitis; G80.9 Cerebral palsy, unspecified; F43.10 Post-traumatic stress disorder, unspecified; F17.210 Nicotine dependence, cigarettes, uncomplicated; Z79.1 Long term (current) use of non-steroidal anti-inflammatories (NSAID); Z79.899 Other long term (current) drug therapy
CPT/HCPCS: 45385; 88305; J2371; J2704; J7120

== ENCOUNTER 2023-08-16 08:33 | Outpatient (CLI) | payer MEDICARE, MEDICAID, SELFPAY ==
--- NOTE | ~2023-08-16 | DEXA_ITS ---
Bone Density Report Name: STANFORD WATTERS Age: 43 Sex: Male Ethnicity: White Date of : 1980 Indication: monitoring treatment; height loss; seizure disorder; Referring Provider: JADIEL BARROSO Study: Bone densitometry was performed. Exam Date: August 16, 2023 Accession number: [id number] Bone Density: Region BMD T-score Z-score Classification AP Spine(L1-L4) 0.758 -3.0 -2.9 Osteoporosis Femoral Neck (Left) 0.763 -1.2 -0.7 Osteopenia Total Hip (Left) 0.707 -2.2 -1.9 Osteopenia Femoral Neck (Right) 0.591 -2.5 -1.9 Osteoporosis Total Hip (Right) 0.678 -2.4 -2.1 Osteopenia Total Hip Mean 0.692 -2.3 -2.0 Osteopenia World Health Organization criteria for BMD impression classify patients as: Normal (T-score at or above -1.0), Osteopenia (T-score between -1.0 and -2.5), or Osteoporosis (T-score at or below -2.5). 10-year Fracture Risk: FRAX not reported because: Man under age 50 Some T-score for Spine Total or Hip Total or Femoral Neck at or below -2.5 Treated for osteoporosis Previous Exams: Region Exam Age BMD T-score BMD Change BMD Change Date g/cm2 vs Baseline vs Previous AP Spine (L1-L4) 08/16/2023 43 0.758 -3.0 -0.127 (-14.4% -0.065 (-7.9%) 11/30/2020 40 0.823 -0.062 (-7.0%) -0.062 (-7.0%) 10/23/2017 37 0.885 Total Hip(Left) 08/16/2023 43 0.707 -2.2 -0.026 (-3.6%) 0.038 (5.6%)* 11/30/2020 40 0.669 -0.064 (-8.7%) -0.064 (-8.7%) 10/23/2017 37 0.733 Total Hip(Right) 08/16/2023 43 0.678 -2.4 -0.074 (-9.8%) -0.084 (-11.0% 11/30/2020 40 0.761 0.010 (1.3%) 0.010 (1.3%) 10/23/2017 37 0.752 *Denotes significance at 95% confidence level, LSC for AP Spine = 0.022 g/cm2, LSC for Total Hip = 0.027 g/cm2 # Denotes dissimilar scan types or analysis methods Clinical Information Provided by Patient: Smokes Is being treated for osteoporosis Has used the following medications: Vitamin D, Calcium Has the following medical conditions: Any Seizure Disorders Patient maximum height was 67 No regular weight bearing exercise Drinks caffeinated beverages Impression: The patient's bone mass is below expected range for age, gender and ethnicity based on the Total Spine Z-score. The patient has risk factors, including: smoking. The BMD for the AP Spine (L1-L4) decreased, changing by -7.9% since the last DXA exam. The BMD for the Total Hip(Right) decreased, changing by -11.0% since the last DXA exa
== END 2023-08-16 08:34 | disposition home or self-care (01) ==
LOC: ANHIMG 08:34
PROVIDERS: PCP Nurse Practitioner; Visit Provider Nurse Practitioner
DX: M81.0 Age-related osteoporosis without current pathological fracture (principal); M85.852 Other specified disorders of bone density and structure, left thigh; M85.851 Other specified disorders of bone density and structure, right thigh
CPT/HCPCS: 77080

== ENCOUNTER 2023-08-29 14:29 | Outpatient (CLI) | payer MEDICARE, MEDICAID, SELFPAY ==
--- NOTE | ~2023-08-29 | CT_ITS ---
Non-contrast Head CT History: CROSS ROLLER shunt status Technique: Axial non-contrast imaging of the brain was performed. Dose reduction technique was used on this scan by utilizing automated exposure control and iterative reconstruction technique. The dose -length product (DLP) was 605.33 mGy-cm. Findings: There is no evidence of intracranial hemorrhage, mass lesion, or acute infarct. CROSS ROLLER shunt p resent, with apparent satisfactory position. There are mild generalized atrophic changes. The ventri cles and subarachnoid spaces are nondilated. The calvarium appears normal. The visualized paranasal sinuses and mastoid air cells are clear. Impression: CROSS ROLLER shunt in place. No ventricular dilatation. Mild generalized atrophy and possible minimally dysmorphic appearance of the brain itself. Reviewed, dictated and finalized at location . Impression: CROSS ROLLER shunt in place. No ventricular dilatation. Mild generalized atrophy and possible minimally dysmorphic appearance of the br ain itself.
== END 2023-08-29 14:30 | disposition home or self-care (01) ==
PROVIDERS: PCP Nurse Practitioner
DX: G31.9 Degenerative disease of nervous system, unspecified (principal); Z98.2 Presence of cerebrospinal fluid drainage device
CPT/HCPCS: 70450

== ENCOUNTER 2024-10-08 10:15 | Outpatient (CLI) | payer MEDICARE, MEDICAID, SELFPAY ==
--- NOTE | ~2024-10-08 | XR_ITS ---
Left Knee Technique: AP, lateral, and sunrise views were obtained. Clinical History: History of femoral fracture Findings: No acute fracture or dislocation is seen. Status post ORIF of distal femoral fracture with [address] There is moderate tricompartmental degenerative change of the knee. Sof t tissues are unremarkable. No joint effusion is seen. Impression: No acute abnormality. Prior orthopedic surgery the distal femur. Moderate tricompartmental degenerative change of the knee. Reviewed, dictated and finalized at location M. Impression: No acute abnormality. Prior orthopedic surgery the distal femur. Moderate tricompartmental degenerative change of the knee.
--- NOTE | ~2024-10-08 | XR_ITS ---
Clinical Indication: Chest pain PA and lateral views of the chest: Comparison: 06/14/2019 Findings: Linear scarring left midlung noted. The lungs are oh otherwise clear, without evidence of f ocal consolidation or pleural effusion. Cardiomediastinal silhouette is within normal limits. Bones and soft tissues are unremarkable. MICA INSPECTOR shunt present. Impression: No acute abnormality. Linear scarring left midlung. MICA INSPECTOR shunt. Reviewed, dictated and finalized at location M. Impression: No acute abnormality. Linear scarring left midlung. MICA INSPECTOR shunt.
--- OUTSIDE RECORDS SUMMARY | 2024-10-08 11:30 | XMS_ITS | Patient Health Record ---
Author Organization [facility] [employer] Address [address] [facility] [address] [place] [address] Care Team Providers Care Reimbursement Consultant Name Role Phone Marcus Anderson DO Primary Care Provider UnavailCris Salazar Unavailable [phone] Loreta Syed Unavailable [phone] Allergies Allergen (clinical drug ingredient) Drug/Non Drug Allergy documented on EMR Reaction Allergy Type Onset Date Status Substance with sulfonamide structure and antibacterial mechanism of action (substance) SULFA (SULFONAMIDE ANTIBIOTICS) (uncoded) Unknown Allergy 06/05/2023 Active Banana Cream Flavor Unknown Drug Allergy Active Latex Latex Unknown Allergy Active Reason For Referral No Information Medications Medication SIG (Take, Route, Frequency, Duration) Notes Start Date End Date Status Melatonin 5 MG 1 tablet at bedtime Oral Once a day for 30 days 06/05/2023 Active Kvnmghlo-Krinxgnnz-I C 3.5-29639-6 Otic 06/05/2023 Active OLANZapine 5 MG 2 tablets once a day for 7 days, 1 tablet once a day for 14 days Orally for 21 days taper off 09/10/2024 Active EC-NAPROXEN 500 MG TABLET,DELAYED RELEASE *Reorder from [facility] for eRx and Interaction Alerts* 06/05/2023 Unknown lamoTRIgine 100 MG 1 tablet Oral twice a day for 30 days Active Senna 8.6 mg Oral 06/05/2023 Unknow n FLUoxetine HCl 40 MG 1 capsule Oral Once a day for 30 days Active ARIPiprazole 10 MG 0.5 tablet once a day for 7 days, 1 tablet once a day for 23 days Orally for 30 days 09/10/2024 Active OLANZapine 20 MG 1 tablet once a day for 14 days, 0.5 tablet once a day for 16 days Oral for 30 days reducing, cross taper to aripiprazole Active Vitamin D3 Ultra Strength 125 MCG (5000 UT) Oral 06/05/2023 Active TAB-A-CYNDY 400 MCG TABLET *Reorder from [facility] for eRx and Interaction Alerts* 06/05/2023 Active Vitamin D3 Adult Gummies 25 MCG (1000 UT) Oral 06/05/2023 Active Polyethylene Glycol 3350 Oral 06/05/2023 Active Nystatin 131240 UNIT/GM External 06/05/2023 Active CHEST CONGESTION RELIEF DM 10 MG-100 MG/5 ML ORAL SYRUP *Reorder from [facility] for eRx and Interaction Alerts* 06/05/2023 Active Chest Rub 4.8-1.2-2.6 % External 06/05/2023 Active Bisacodyl EC 5 MG Oral 06/05/2023 A ctive Baclofen 10 MG Oral 06/05/2023 Acti ve Ranitidine HCl 150 MG Oral 06/05/2023 Active Magnesium Citrate 1.745 GM/30ML Oral 06/05/2023 Active LORazepam 0.5 MG 1 tablet at bedtime Orally Once a day for 30 days 09/10/2024 Active Cetirizine HCl 10 MG Oral for 30 Days Active Docusate Sodium 100 MG Oral for 15 Days Active Zinc Oxide 20 % External 06/05/2023 Act aniket Acetaminophen 325 MG Oral for 5 Days Active ANTACID-ANTIGAS 200-200-20 mg/5 mL Oral *Reorder from [facility] for eRx and Interaction Alerts* 06/05/2023 Unknown Vitamin D3 125 MCG (5000 UT) Oral for 31 Days Active LORazepam 0.5 MG 1 tablet at bedtime Orally daily for 30 days make appointment for further refills 08/14/2024 Active Pantoprazole Sodium 40 MG Oral for 31 Days Active busPIRone HCl 15 MG Oral for 31 Days Active Immunizations Vaccine Route Administration Date Status Comme nts DTP Unknown 1981 Administered DTP Unknown 1981 Administered DTP Unknown 02/22/1983 Administered DTP Unknown 08/23/1983 Administered DTP Unknown 07/07/1984 Administered Hep B, adolescent or pediatr ic (11-19), 3 dose schedule Unknown 06/26/1994 Administered Hep B, adolescent or pediatr ic (11-19), 3 dose schedule Unknown 04/04/1995 Administered Hep B, adolescent or pediatr ic (11-19), 3 dose schedule Unknown 11/01/1995 Administered Influenza, unspecified formulation Unknown 01/19/2018 A dministered Pierre Covid-19 Vaccine Unknown 06/30/2020 Administere d MMR Unknown 08/22/1982 Administered MMR Unknown 11/05/1990 Administered OPV Unknown 1981 Administered OPV Unknown 1981 Administered OPV Unknown 02/22/1983 Administered OPV Unknown 08/23/1983 Administered OPV Unknown 07/07/1984 Administered Pneumococcal polysaccharide PPV23 Unknown 10/10/2013 Ad ministered Social History Tobacco Use: Social History Observation Description Date Details (start date - stop date) Current Smoker 10/25/2004 - NA Sex Assigned At : Social History Observation Description Sex Assigned At Male Tobacco Control (Standard) Question Answer Notes Tobacco use: Current smoker When did you start smoking? 10/25/2004 How often do you smoke cigarettes? Every day How many cigarettes a day do you smoke? 6-10 How soon after you wake up do you smoke your fir st cigarette? Within 5 minutes Are you interested in quitting? Not ready to joyce t Section Notes: Social History Substance UseDo you or have you ever smoked tobacco?: Current every day smokerHow many years have you smoked tobacco?: 20At what age did you start smoking tobacco?: 19How much tobacco do you smoke?: 1/4 pack per dayDo you or have you ever used e-cigarettes or vape?: Former user of electronic cigarettesDo you or have you ever used smokeless tobacco?: Never used smokeless tobaccoHow much tobacco do you chew?: noneWhat was the date of your most recent tobacco screening?: 12/12/2022Has tobacco cessation counseling been provided?: YesOn what date was tobacco cessation counseling provided?: 12/12/2022What is your level of alcohol consumption?: NoneHow many years have you consumed alcohol?: 0Do you use any illicit or recreational drugs?: NoHave you used IV drugs?: NoWhat is your level of caffeine consumption?: ModerateEducation and OccupationWhat is the highest grade or level of school you have completed or the highest degree you have received?: High school graduateAre you currently employed?: YesWho is your employer?: [employer]Marriage and SexualityWhat is your relationship status?: SingleAre you sexually active?: NoDo you use protection during sex?: NoHow many children do you have?: 0Home and EnvironmentAre there any guns present in your home?: NoAdvance DirectiveDo you have an advance directive?: NoDo you have a medical power of commercial attorney?: No Social History Substance UseDo you or have you ever smoked tobacco?: Current every day smokerHow many years have you smoked tobacco?: 20At what age did you start smoking tobacco?: 19How much tobacco do you smoke?: 1/4 pack per dayDo you or have you ever used e-cigarettes or vape?: Former user of electronic cigarettesDo you or have you ever used smokeless tobacco?: Never used smokeless tobaccoHow much tobacco do you chew?: noneWhat was the date of your most recent tobacco screening?: 12/12/2022Has tobacco cessation counseling been provided?: YesOn what date was tobacco cessation counseling provided?: 12/12/2022What is your level of alcohol consumption?: NoneHow many years have you consumed alcohol?: 0Do you use any illicit or recreational drugs?: NoHave you used IV drugs?: NoWhat is your level of caffeine consumption?: ModerateEducation and OccupationWhat is the highest grade or level of school you have completed or the highest degree you have received?: High school graduateAre you currently employed?: YesWho is your employer?: [employer]Mar[employer] and SexualityWhat is your relationship status?: SingleAre you sexually active?: NoDo you use protection during sex?: NoHow many children do you have?: 0Home and EnvironmentAre there any guns present in your home?: NoAdvance DirectiveDo you have an advance directive?: NoDo you have a medical power of commercial attorney?: No Social History Substance UseDo you or have you ever smoked tobacco?: Current every day smokerHow many years have you smoked tobacco?: 20At what age did you start smoking tobacco?: 19How much tobacco do you smoke?: 1/4 pack per dayDo you or have you ever used e-cigarettes or vape?: Former user of electronic cigarettesDo you or have you ever used smokeless tobacco?: Never used smokeless tobaccoHow much tobacco do you chew?: noneWhat was the date of your most recent tobacco screening?: 12/12/2022Has tobacco cessation counseling been provided?: YesOn what date was tobacco cessation counseling provided?: 12/12/2022What is your level of alcohol consumption?: NoneHow many years have you consumed alcohol?: 0Do you use any illicit or recreational drugs?: NoHave you used IV drugs?: NoWhat is your level of caffeine consumption?: ModerateEducation and OccupationWhat is the highest grade or level of school you have completed or the highest degree you have received?: High school graduateAre you currently employed?: YesWho is your employer?: [employer]Mar[employer] and SexualityWhat is your relationship status?: SingleAre you sexually active?: NoDo you use protection during sex?: NoHow many children do you have?: 0Home and EnvironmentAre there any guns present in your home?: NoAdvance DirectiveDo you have an advance directive?: NoDo you have a medical power of commercial attorney?: No Problems Problem Type SNOMED Code ICD Code Onset Dates Problem Status W/U Status Risk Notes Problem Generalized anxiety disorder (13634183) Generalized anxiety disorder (F41.1) 4 Active confirmed Problem Mild mental retardation (Intelligence Quotient 50-70) (10185754) Mild intellectual disabilities (F70) 4 Active confirmed Problem Bipolar I disorder (F31.9) Active confirmed Problem Persistent insomnia (925633371) Persistent insomnia (G47.00) Active confirmed Vital Signs Heart Rate 94 /min 09/10/2024 Height-cm 165.10 cm 09/10/2024 Blood pressure diastolic 69 mm Hg 09/10/2024 Weight-kg 99.61 kg 09/10/2024 Height 65.00 in 09/10/2024 Blood pressure systolic 107 mm Hg 09/10/2024 Weight 219.6 lbs 09/10/2024 BMI 36.54 kg/m2 09/10/2024 Encounters Encounter Location Date Provider Diagnosis [facility] [address] [address] 10/25/2023 Loreta Syed Bipolar I disorder F31.9 ; Generalized anxiety disorder F41.1 ; Persistent insomnia G47.00 and Mild intellectual disabilities F70 [place] [id number] [facility] [address] [address] 03/25/2024 Cris Barbaraalexandrea Bipolar I disorder F31.9 ; Generalized anxiety disorder F41.1 ; Persistent insomnia G47.00 and Mild intellectual disabilities F70 [address] [address] 06/25/2024 Cris Reyes [address] [address] 09/10/2024 Cris Reyes Bipolar I disorder F31.9 ; Generalized anxiety disorder F41.1 ; Persistent insomnia G47.00 ; Mild intellectual disabilities F70 ; Encounter for screening for cardiovascular disorders Z13.6 ; Nicotine use Z72.0 and Encounter for screening for depression Z13.[address] [address] 10/25/2023 Loreta Syed [address] [address] 11/29/2023 Cris Reyes [address] [address] 03/13/2024 Cris Reyes Generalized anxiety disorder F41.[address] [address] 03/18/2024 Cris Reyes Generalized anxiety disorder F41.[address] [address] 04/01/2024 Cris Reyes [place] [address] [facility] [address] [address] 08/14/2024 Cris Reyes Assessments Encounter Date Diagnosis (ICD Code) Assessment Notes Treatment Notes Treatment Clinical Notes Section Notes 10/25/2023 Bipolar I disorder (ICD-10 - F31.9) cont lamotrigine 100mg BID cont fluoxetine 40mg daily cont olanzapine 20mg qhs and 10mg qam reports interested in therapy. Will fax this note and he will talk to [facility] staff, if they have resources available for this they would like to use. if not they can call here and we can get him scheduled with a therapist here. f/u in 3 months, earlier if concerns resides at [facility], moved to [facility] 2 stable re: sleep, have discussed at length, on fair number of sedating meds, could try increase melatonin, but better sleep hygiene, consider environmental issues-not a medication issue, and reasonable expectations, etc. Shared decision to keep meds as is, education on medications, treatment course. he is interested in therapy, see above f/u in 3 months fax visit summary to: [phone] note: smokes cigarettes, olanzapine plasma concentration will be lower 03/25/2024 Bipolar I disorder (ICD-10 - F31.9) Assessment and Plan: 1. bipolar disorder - reports stable mood, no mood swings, manic symptoms Plan: - continue lamotrigine 200 mg daily - continue olanazapine 10 mg QAM, 20 mg QHS 2. Anxiety - reports minimal and mangeable anxiety Plan: - continue fluoxetine 40 mg daily - Adjust lorazepam to be taken at night for night time anxiety and sleep issues. Preferred by patient, also decrease risk of falls with mobility concerns with leg and recent fall 4. insomnia - reports sleep has been disruptive from nightmares and inability to fall asleep, feels related to [employer] shunt which he plans of follow up with soon - inquires about taking his lorazepam at night versus during the day, as it has been known to make him drowsy Plan: - continue melatonin 5 mg QHS - take lorazepam at night to potentially help with sleep. Follow up with PCP and any specialists referred for further evaluation and management of swelling of the leg and [employer] shunt concerns Schedule a follow-up appointment in 3 months to monitor the patient's mental health and medication effectiveness . 03/13/2024 Generalized anxiety disorder (ICD-10 - F41.1) 03/18/2024 Generalized anxiety disorder (ICD-10 - F41.1) 09/10/2024 Bipolar I disorder (ICD-10 - F31.9) reports ongoing mood fluctuations with increased irritability. Verbal aggression noted, with approximately 10 incidents per week. No physical aggression reported.. Discussed concerns about medication efficacy and side effects, particularly weight gain and sedation associated with olanzapine. Also higher risk of hyperlipidemia, glycemic control, Additionally, patient is a smoker, which interferes with metabolization of olanazapine - Continue lamotrigine 100 mg BID - Initiate medication switch from olanzapine to aripiprazole: Week 1: Continue olanzapine 10mg PO morning, 20mg PO bedtime. Start aripiprazole 5 mg PO morning. Week 2: Decrease olanzapine to 5 mg in the moring, continue olanzapine 20 mg at bedtime. Increase aripiprazole to 10 mg PO daily morning. Week 3: Stop olanzapine to 5mg PO morning, continue 20mg PO bedtime. Continue aripiprazole 10 mg PO daily morning. Week 4: Decrease olanzapine to 10 mg PO bedtime. Continue aripiprazole 10mg PO daily morning. - Monitor for changes in mood, agitation, sedation/fatigue , sleep disturbances - Follow up appointment 4 weeks 10/25/2023 Generalized anxiety disorder (ICD-10 - F41.1) cont lorazepam 0.5 mg BID interested in therapy as above 09/10/2024 Generalized anxiety disorder (ICD-10 - F41.1) continue fluoxetine 40 mg daily continue lorazepam 0.5 mg at bedtime also on buspirone 15 mg 03/25/2024 Generalized anxiety disorder (ICD-10 - F41.1) Assessment and Plan: 1. bipolar disorder - reports stable mood, no mood swings, manic symptoms Plan: - continue lamotrigine 200 mg daily - continue olanazapine 10 mg QAM, 20 mg QHS 2. Anxiety - reports minimal and mangeable anxiety Plan: - continue fluoxetine 40 mg daily - Adjust lorazepam to be taken at night for night time anxiety and sleep issues. Preferred by patient, also decrease risk of falls with mobility concerns with leg and recent fall 4. insomnia - reports sleep has been disruptive from nightmares and inability to fall asleep, feels related to [employer] shunt which he plans of follow up with soon - inquires about taking his lorazepam at night versus during the day, as it has been known to make him drowsy Plan: - continue melatonin 5 mg QHS - take lorazepam at night to potentially help with sleep. Follow up with PCP and any specialists referred for further evaluation and management of swelling of the leg and [employer] shunt concerns Schedule a follow-up appointment in 3 months to monitor the patient's mental health and medication effectiveness . 10/25/2023 Persistent insomnia (ICD-10 - G47.00) cont melatonin 5mg qhspractice good sleep hygeine-avoid daytime naps 03/25/2024 Persistent insomnia (ICD-10 - G47.00) Assessment and Plan: 1. bipolar disorder - reports stable mood, no mood swings, manic symptoms Plan: - continue lamotrigine 200 mg daily - continue olanazapine 10 mg QAM, 20 mg QHS 2. Anxiety - reports minimal and mangeable anxiety Plan: - continue fluoxetine 40 mg daily - Adjust lorazepam to be taken at night for night time anxiety and sleep issues. Preferred by patient, also decrease risk of falls with mobility concerns with leg and recent fall 4. insomnia - reports sleep has been disruptive from nightmares and inability to fall asleep, feels related to [employer] shunt which he plans of follow up with soon - inquires about taking his lorazepam at night versus during the day, as it has been known to make him drowsy Plan: - continue melatonin 5 mg QHS - take lorazepam at night to potentially help with sleep. Follow up with PCP and any specialists referred for further evaluation and management of swelling of the leg and [employer] shunt concerns Schedule a follow-up appointment in 3 months to monitor the patient's mental health and medication effectiveness . 09/10/2024 Persistent insomnia (ICD-10 - G47.00) continue melatonin 5 mg at bedtime practice good sleep hygiene 10/25/2023 Mild intellectual disabilities (ICD-10 - F70) supportive care 09/10/2024 Mild intellectual disabilities (ICD-10 - F70) supportive care 03/25/2024 Mild intellectual disabilities (ICD-10 - F70) Assessment and Plan: 1. bipolar disorder - reports stable mood, no mood swings, manic symptoms Plan: - continue lamotrigine 200 mg daily - continue olanazapine 10 mg QAM, 20 mg QHS 2. Anxiety - reports minimal and mangeable anxiety Plan: - continue fluoxetine 40 mg daily - Adjust lorazepam to be taken at night for night time anxiety and sleep issues. Preferred by patient, also decrease risk of falls with mobility concerns with leg and recent fall 4. insomnia - reports sleep has been disruptive from nightmares and inability to fall asleep, feels related to [employer] shunt which he plans of follow up with soon - inquires about taking his lorazepam at night versus during the day, as it has been known to make him drowsy Plan: - continue melatonin 5 mg QHS - take lorazepam at night to potentially help with sleep. Follow up with PCP and any specialists referred for further evaluation and management of swelling of the leg and [employer] shunt concerns Schedule a follow-up appointment in 3 months to monitor the patient's mental health and medication effectiveness . 09/10/2024 Encounter for screening for cardiovascular disorders (ICD-10 - Z13.6) 09/10/2024 Nicotine use (ICD-10 - Z72.0) 09/10/2024 Encounter for screening for depression (ICD-10 - Z13.31) 10/25/2023 Other 09/10/2024 Other - Recommend attending primary care follow-up on the - Check cholesterol levels - Check A1c - Evaluation of lower extremity edema, cardiac workup - If primary care does not perform labs, consider ordering at next psychiatric visit Plan Of Treatment Next Appt Details Provider Name:Cris Sukumar de leon, 10/08/2024 01:30:00 PM, [address], [facility], [place], [address], Insurance Providers Payer Name Payer Address Payer Phone Subscriber Number Group Number Insured Name Patient Relationship to Insured Coverage Start Date Coverage End Date Medicare-I l Medicare [address] [place] [address] [id number] JOHN STANFORD GOMEZ Self - patient is the insured Medicaid-I l Medicaid [address] [address] [place] [address] [id number] [facility] STANFORD GOMEZ Self - patient is the insured Medical (General) History Medical History History ICD Code Problems: Generalized anxiety disorder Insomnia Intellectual functioning disability Long-term current use of drug therapy Mixed bipolar affective disorder, modera te Nicotine dependence Obesity Persistent insomnia Posttraumatic stress disorder Smoker Spina bifida , Surgical History Surgery Date(Month/Year) Any surgical history
--- OUTSIDE RECORDS SUMMARY | 2024-10-08 11:30 | XMS_ITS | Referral Summary ---
Author Organization [facility] Address [address] [place] [address] Care Team Providers Care Heel Blacker Name Role Phone Selvin Abreu MD Unavailable [phone] Marcus Anderson DO Primary Care Provider [phone] Encounters Date Type Department Care Team Description 07/25/2024 Telephone [facility] Ophthalmology [address] [phone] Siria Morgan MD Scheduling Appointments from Last 3 Months Allergies Active Allergy Reactions Criticality Noted Date Comments Latex Sulfa (Sulfonamide Antibiotics) Medications No known medications Active Problems Problem Noted Date Diagnosed Date Candidiasis of urogenital site 11/26/2014 Overview (07/28/2016): Candidiasis of scrotum Closed fracture of femur 09/17/2013 Social History Tobacco Use Types Packs/Day Years Used Date Smoking Tobacco: Every Day Cigarettes Tobacco Cessation:Ready to Q uit: Not Asked; Counseling Given: Not Answered Alcohol Use Standard Drinks/Week Comments No 0 (1 standard drink = 0.6 oz pur e alcohol) Personal Safety Answer Date Recorded Getting School Help Needed Not on file 06/16 Sex and Gender Information Value Date Recorded Sex Assigned at Not on file Legal Sex Male 9:10 PM [employer] Gender Identity Not on file Sexual Orientation Not on file Last Filed Vital Signs Vital Sign Reading Time Taken Comments Blood Pressure 111/74 05/05/2022 8:56 PM [employer] Pulse 86 05/05/2022 8:56 PM [employer] SUPER[employer] Temperature 36.6 C (97.9 F) 05/05/2022 8:56 PM [employer] SU[employer] Respiratory Rate 18 05/05/2022 8:56 PM [employer] SUPER[employer]OR Oxygen Saturation 95% 05/05/2022 8:56 PM [employer]ING SUPER[employer]OR Inhaled Oxygen Concentration - - Weight 70.3 kg (155 lb) 05/05/2022 8:56 PM [employer] SUPER[employer]OR Height 165.1 cm (5' 5) 04/12/2022 4:46 PM [employer] SUPER[employer] Body Mass Index 25.79 04/12/2022 4:46 PM [employer] SUPER[employer]OR Plan of Treatment Not on file Insurance [employer] MEDICARE [employer] MEDICARE [facility] MEDICARE Care Teams Heel Blacker Relationship Specialty Start Date End Date Marcus Anderson DO [address] [place] [address] PCP - General Internal Medicine 07/25/24 Selvin Abreu MD Referring Physician Internal Medicine 03/31/22
--- OUTSIDE RECORDS SUMMARY | 2024-10-08 11:30 | XMS_ITS | Clinical Summary ---
Author Organization [facility] [employer] Address [address] [place] [address] Care Team Providers Care [employer] Name Role Phone Marcus Anderson DO Primary Care Provider [phone] Source Comments [facility] [employer],non-owned Affiliates and Associated Physician Practices is amultiple site organization consisting of ambulatory clinics and hospital sitesin [place], [place], [place] and [place]. This disclosure is being madepursuant to the Care Everywhere program and may not contain all information available regarding this patient. Last updated 18.[facility] [employer] Allergies Active Allergy Reactions Criticality Noted Date Comments Albumin 10/07/2013 Latex 10/07/2013 Mercury 10/07/2013 Sulfa Drugs Other 10/07/2013 Medications * This document contains information received from the source organization and may not represent a complete record from that organization. * Be aware that medications may not be up to date on this document. Alwaysverify current medications with the patient. psyllium (METAMUCIL) 58.6 % powder Take 1 (one) packet by mouth once daily afternoon Active ranitidine (ZANTAC) 300 MG tabletIndicatio ns:gerd Take 1 (one) tablet by mouth at bedtime Reasons: gerd Active Multiple Vitamin (THERAVITE PO) Take 1 Tab by mouth every morning. Active acetaminophen (TYLENOL) 500 MG tabletIndicatio ns:Fever,Pain Take 2 (two) tablets by mouth every 4 hours as needed Maximum allowable Acetaminophen amount = 4 Grams (4000 mg) / 24 hours. Reasons: Fever, Pain Active loratadine (CLARITIN) 10 MG tabletIndicatio ns:Seasonal Allergic Rhinitis Take 1 Tab by mouth once daily. Indications: Hayfever 30 Tab 0 4 Active Additional Information Patient not taking.Reported on 04/11/2024 docusate sodium (COLACE) 100 MG capsule Take 1 (one) capsule by mouth 2 times daily Active magnesium hydroxide (Milk Of Magnesia) 400 MG/5ML suspension Take by mouth every 24 hours as needed Active cetirizine (ZyrTEC) 10 MG chew tablet Take 1 (one) tablet by mouth once daily Active bisacodyl EC 5 MG tablet 4 Active neomycin-polymy julissa-hc (Cortisporin) 3.5-70201-8 otic solution 3 Active zinc oxide 20 % ointment as needed 3 Active traMADol (Ultram) 50 MG tablet Take 1 tablet every 6 hours by oral route. Active neomycin-polymy julissa-hc (Cortisporin) 3.5-48852-8 otic suspension 4 Active lamoTRIgine (LaMICtal) 100 MG tablet 4 Active cetirizine (ZyrTEC) 10 MG tablet 4 Active camphor-eucalyp kbp-iodegzm-rrp p oil-white pet (Vicks Vaporub) 4.8-1.2-2.6 % ointment Apply to affected area 2 times daily Active pantoprazole EC (Protonix) 40 MG tablet Take 1 (one) tablet by mouth 2 times daily Active Cholecalciferol (VITAMIN D-3 PO) Take 5,000 mcg by mouth once daily Active busPIRone (Buspar) 15 MG tabletIndicatio ns:PTSD (post-traumatic stress disorder) Take 0.5 (one-half) tablet by mouth 2 times daily 31 tablet 3 4 Active LORazepam (Ativan) 0.5 MG tabletIndicatio ns:PTSD (post-traumatic stress disorder) Take 1 (one) tablet by mouth 2 times daily 62 tablet 3 4 Active lamoTRIgine (LaMICtal) 100 MG tabletIndicatio ns:Intermittent explosive disorder,Depres bernardo, unspecified depression type Take 1 (one) tablet by mouth 2 times daily 62 tablet 3 4 Active FLUoxetine (PROzac) 40 MG capsuleIndicati ons:Depression, unspecified depression type,PTSD (post-traumatic stress disorder) Take 1 (one) capsule by mouth once daily 31 capsule 3 4 Active OLANZapine (ZyPREXA) 20 MG tabletIndicatio ns:Intermittent explosive disorder Take 1 (one) tablet by mouth at bedtime 31 tablet 3 4 Active OLANZapine (ZyPREXA) 10 MG tabletIndicatio ns:Major Depressive Disorder Take 1 (one) tablet by mouth once daily Reasons: Major Depressive Disorder 31 tablet 3 4 Active melatonin 5 MG tabletIndicatio ns:Depression, unspecified depression type,PTSD (post-traumatic stress disorder) Take 1 (one) tablet by mouth at bedtime 31 tablet 3 4 Active Active Problems Problem Noted Date Diagnosed Date Major depression, recurrent 10/08/2013 Encounters Date Type Department Care Team Description 07/23/2024 10:30 AM CDT Office Visit [facility] - Ophthalmology [address] [place] [id number] Optic nerve atrophy, bilateral (Primary Dx) 07/23/2024 Travel 07/22/2024 Travel from Last 3 Months Immunizations Immunization Administration Dates Next Due PNEUMOCOCCAL PPSV23 10/10/2013 Family History Medical History Relation Name Comments Bipolar Disorder Maternal Grandmother Bipolar Disorder Mother Bipolar Disorder Sister Relation Name Status Comments Maternal Grandmother Mother Sister Social History Tobacco Use Types Packs/Day Years Used Date Smoking Tobacco: Heavy Smoker Cigarettes Tobacco Cessation:Ready to Q uit: No; Counseling Given: Yes Alcohol Use Standard Drinks/Week Comments No 0 (1 standard drink = 0.6 oz pur e alcohol) Sex and Gender Information Value Date Recorded Sex Assigned at Not on file 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 Gender Identity Not on file Sexual Orientation Not on file Last Filed Vital Signs Vital Sign Reading Time Taken Comments Blood Pressure 105/70 08/03/2023 11:25 AM CDT Pulse 97 08/03/2023 11:25 AM CDT Temperature 36.7 C (98 F) 08/03/2023 11:25 AM CDT Respiratory Rate 14 10/11/2013 7:25 AM CDT Oxygen Saturation 91% 08/03/2023 11:25 AM CDT Inhaled Oxygen Concentration - - Weight 84.4 kg (186 lb) 08/03/2023 11:25 AM CDT Height 165.1 cm (5' 5) 08/03/2023 11:25 AM CDT Body Mass Index 30.95 08/03/2023 11:25 AM CDT Plan of Treatment Health Maintenance Due Date Last Done Comments LIPID TESTING 1981 MEDICARE AWV 12 MONTHS 1981 HIV SCREENING 1996 HEPATITIS C SCREENING 04/15/1999 DTAP/TDAP/TD VACCINES (1 - Tdap) 2000 HEPATITIS B VACCINE (1 of 3 - 19+ 3-dose series) 2000 PNEUMOCOCCAL VACCINE (2 of 2 - PCV) 10/10/2014 10/10/2013 COVID-19 VACCINE (2 - season) 2023 06/30/2020 DEPRESSION SCREENING 04/24/2024 INFLUENZA VACCINE (Season Ended) 2024 01/22/2014 SCREENING FOR DIABETES 03/21/2027 , 03/21/2024, 02/03/2021, Additional history exists ZOSTER VACCINE (1 of 2) 2031 HIB VACCINE Aged Out No longer eligi ble based on patient's age to complete this topic HPV VACCINE Aged Out No longer eligi ble based on patient's age to complete this topic MENINGOCOCCAL (Group B) VACCINE SHARED DECISION-MAKING Aged Out No longer eligible based on patient's age to complete this topic MENINGOCOCCAL GROUPS A/C/Y/W VACCINE Aged Out No longer eligible based on patient's age to complete this topic Procedures Procedure Name Priority Date/Time Associated Diagnosis Comments COMPREHENSIVE METABOLIC PANEL STAT 10/07/2013 2:44 PM CDT from Last 3 Months or Most Recently Relevant to Health Maintenance Results * (ABNORMAL) COMPREHENSIVE METABOLIC PANEL (10/07/2013 2:44 PM CDT) [facility] Glucose 102 70 - 125 mg/dL 10/07/2013 3:11 PM CDT [facility] Sodium 144 136 - 145 mmol/L 10/07/2013 3:11 PM CDT [facility] Potassium 4.5 3.4 - 4.5 mmol/L 10/07/2013 3:11 PM [facility] Chloride 108(H) 98 - 107 mmol/L 10/07/2013 3:11 PM [facility] CO2 25 22 - 29 mmol/L 10/07/2013 3:11 PM [facility] Calcium 9.7 8.4 - 10.2 mg/dL 10/07/2013 3:11 PM [facility] Anion Gap 16 10 - 20 mmol/L 10/07/2013 3:11 PM [facility] BUN 13.6 8.4 - 25.7 mg/dL 10/07/2013 3:11 PM [facility] Creatinine 1.03 0.72 - 1.25 mg/dL 10/07/2013 3:11 PM [facility] eGFR by MDRD >60 >60 mL/min/1.7 2 10/07/2013 3:11 PM [facility] eGFR by MDRD >60 >60 mL/min/1.7 3m2 10/07/2013 3:11 PM [facility] Alkaline Phosphatase 80 40 - 150 U/L 10/07/2013 3:11 PM [facility] ALT 14 5 - 55 U/L 10/07/2013 3:11 PM [facility] AST 14 5 - 34 U/L 10/07/2013 3:11 PM [facility] Protein Total 7.4 6.4 - 8.3 gm/dL 10/07/2013 3:11 PM [facility] Albumin 4.0 3.5 - 5.0 gm/dL 10/07/2013 3:11 PM [facility] Globulin Total 3.4 2.6 - 4.0 gm/dL 10/07/2013 3:11 PM [facility] Albumin/Globulin Ratio 1.2 0.9 - 1.6 10/07/2013 3:11 PM [facility] Bilirubin Total 0.3 0.2 - 1.2 mg/dL 10/07/2013 3:11 PM [facility] Blood BLOOD SPECIMEN / Unknown Lab Venipuncture / Unknown 10/07/2013 2:44 PM CDT 10/07/2013 2:47 PM T Sara Sparrow MD LAB - CHEMISTRY ORDERABLES Ana Paula villavicencio Result [facility] [address] from Last 3 Months or Most Recently Relevant to Health Maintenance Insurance MEDICARE [place]IC[place] Advance Directives Documents on File Type Date Recorded Patient Gang Leader Expl anation Adv Directive/Living Will/POA 10/14/2013 9:25 AM * Full Code (Latest Code Status on File) Date Activated Date Inactivated Comments 10/07/2013 5:19 PM 10/11/2013 3:36 PM Care Teams [employer] Relationship Specialty Start Date End Date Marcus Anderson DO [address] [place] [id number] PCP - General Internal Medicine 07/10/24
--- OUTSIDE RECORDS SUMMARY | 2024-10-08 11:30 | XMS_ITS ---
Author Organization [facility] [employer] Address [address] [facility] [address] [place] [address] Care Team Providers Care Watch Assembly Inspector Name Role Phone Marcus Anderson DO Primary Care Provider Cris Moreno Unavailable [phone] Allergies Allergen (clinical drug ingredient) Drug/Non Drug Allergy documented on EMR Reaction Allergy Type Onset Date Status Substance with sulfonamide structure and antibacterial mechanism of action (substance) SULFA (SULFONAMIDE ANTIBIOTICS) (uncoded) Unknown Allergy 06/05/2023 Active Banana Cream Flavor Unknown Drug Allergy Active Latex Latex Unknown Allergy Active REASON FOR VISIT Patient had an accident, will be back this afternoon Medications Medication SIG (Take, Route, Frequency, Duration) Notes Start Date End Date Status TAB-A-CYNDY 400 MCG TABLET *Reorder from [employer] for eRx and Interaction Alerts* 06/05/2023 Active Baclofen 10 MG Oral 06/05/2023 Acti ve Vitamin D3 Adult Gummies 25 MCG (1000 UT) Oral 06/05/2023 Active Bisacodyl EC 5 MG Oral 06/05/2023 A ctive Chest Rub 4.8-1.2-2.6 % External 06/05/2023 Active Docusate Sodium 100 MG Oral for 15 Days Active Nystatin 320206 UNIT/GM External 06/05/2023 Active Polyethylene Glycol 3350 Oral 06/05/2023 Active Cetirizine HCl 10 MG Oral for 30 Days Active Wbdaxaih-Cslqvxkxy-AL 3.5-87242-3 Otic 06/05/2023 Active busPIRone HCl 15 MG Oral for 31 Days Active Acetaminophen 325 MG Oral for 5 Days Active Pantoprazole Sodium 40 MG Oral for 31 Days Active Vitamin D3 125 MCG (5000 UT) Oral for 31 Days Active EC-NAPROXEN 500 MG TABLET,DELAYED RELEASE *Reorder from [facility] for eRx and Interaction Alerts* 06/05/2023 Unknown FLUoxetine HCl 40 MG 1 capsule Oral Once a day for 30 days Active ANTACID-ANTIGAS 200-200-20 mg/5 mL Oral *Reorder from [facility] for eRx and Interaction Alerts* 06/05/2023 Unknown Senna 8.6 mg Oral 06/05/2023 Unknow n Melatonin 5 MG 1 tablet at bedtime Oral Once a day for 30 days 06/05/2023 Active LORazepam 0.5 MG 1 tablet at bedtime Orally daily for 30 days make appointment for further refills 08/14/2024 Active OLANZapine 20 MG 1 tablet at bedtime Oral Once a day for 30 days Active lamoTRIgine 100 MG 1 tablet Oral twice a day for 30 days Active OLANZapine 10 MG 1 tablet in the morning Oral Once a day for 30 days Active Zinc Oxide 20 % External 06/05/2023 Act aniket Ranitidine HCl 150 MG Oral 06/05/2023 Active CHEST CONGESTION RELIEF DM 10 MG-100 MG/5 ML ORAL SYRUP *Reorder from [facility] for eRx and Interaction Alerts* 06/05/2023 Active Vitamin D3 Ultra Strength 125 MCG (5000 UT) Oral 06/05/2023 Active Magnesium Citrate 1.745 GM/30ML Oral 06/05/2023 Active Social History Sex Assigned At : Social History Observation Description Sex Assigned At Male Vital Signs Blood pressure systolic 114 mm Hg 09/11/19 25 Blood pressure diastolic 75 mm Hg 025 Heart Rate 89 /min 09/10/2024 Height 65.00 in 09/10/2024 Weight 216 lbs 09/10/2024 BMI 35.94 kg/m2 09/10/2024 Height-cm 165.10 cm 09/10/2024 Weight-kg 97.98 kg 09/10/2024 Encounters Encounter Location Date Provider Diagnosis [facility] [address] [address] 09/10/2024 Cris Reyes Encounter for screening for depression Z13.31 and Encounter for screening for cardiovascular disorders Z13.6 Assessments Encounter Date Diagnosis (ICD Code) Assessment Notes Treatment Notes Treatment Clinical Notes Section Notes 09/10/2024 Encounter for screening for depression (ICD-10 - Z13.31) 09/10/2024 Encounter for screening for cardiovascular disorders (ICD-10 - Z13.6) Plan Of Treatment Next Appt Details Provider Name:Cris de leon, 10/08/2024 01:30:00 PM, [address] [facility], [address], [address], Progress Notes * STANFORD WATTERSDOB:[birth year] (44 yo M)Acc No.[id number]:09/10/2024 Patient: STANFORD NORTH Provider: Carito Reyes :1980 A ge:44 Y S ex:Male Date:09/10/2024 Address:[address] [place], [place] [id number] Pcp:Marcus Anderson DO Subjective: * Chief Complaints: * 1 . Patient had an accident, will be back this afternoon. * HPI: H istory of Presenting Problem: BP normal. * ROS: P erformance Met: N ormal blood pressure reading documented, follow-up not required ( G8783). * Medical History: P roblems: Generalized anxiety disorder, Insomnia, Intellectual functioning disability, Long-term current use of drug therapy, Mixed bipolar affective disorder, moderate, Nicotine dependence, Obesity, Persistent insomnia, Posttraumatic stress disorder, Smoker, Spina bifida, ,. * Medications: T aking busPIRone HCl 15 MG Tablet Oral , Taking Pantoprazole Sodium 40 MG Tablet Delayed Release Oral , Taking Vitamin D3 125 MCG (5000 UT) Capsule Oral , Taking Acetaminophen 325 MG Tablet Oral , Taking Docusate Sodium 100 MG Capsule Oral , Taking Cetirizine HCl 10 MG Tablet Oral , Taking Csbbyxiu-Yjkwbwrbp-TV 3.5-24708-8 Suspension Otic , Taking Nystatin 895681 UNIT/GM Cream External , Taking Polyethylene Glycol 3350 Powder Oral , Taking Vitamin D3 Adult Gummies 25 MCG (1000 UT) Tablet Chewable Oral , Taking TAB-A-CYNDY 400 MCG TABLET , Notes to Pharmacist: *Reorder from [employer] for eRx and Interaction Alerts*, Taking Baclofen 10 MG Tablet Oral , Taking Bisacodyl EC 5 MG Tablet Delayed Release Oral , Taking Chest Rub 4.8-1.2-2.6 % Ointment External , Taking CHEST CONGESTION RELIEF DM 10 MG-100 MG/5 ML ORAL SYRUP , Notes to Pharmacist: *Reorder from [facility] for eRx and Interaction Alerts*, Taking Vitamin D3 Ultra Strength 125 MCG (5000 UT) Capsule Oral , Taking Magnesium Citrate 1.745 GM/30ML Solution Oral , Taking Ranitidine HCl 150 MG Tablet Oral , Taking Zinc Oxide 20 % Ointment External , Taking lamoTRIgine 100 MG Tablet 1 tablet Oral twice a day , Taking OLANZapine 10 MG Tablet 1 tablet in the morning Oral Once a day , Taking OLANZapine 20 MG Tablet 1 tablet at bedtime Oral Once a day , Taking FLUoxetine HCl 40 MG Capsule 1 capsule Oral Once a day , Taking Melatonin 5 MG Tablet 1 tablet at bedtime Oral Once a day , Taking LORazepam 0.5 MG Tablet 1 tablet at bedtime Orally daily make appointment for further refills, Unknown ANTACID-ANTIGAS 200-200-20 mg/5 mL Suspension Oral , Notes to Pharmacist: *Reorder from [facility] for eRx and Interaction Alerts*, Unknown Senna 8.6 mg Tablet Oral , Unknown EC-NAPROXEN 500 MG TABLET,DELAYED RELEASE , Notes to Pharmacist: *Reorder from [facility] for eRx and Interaction Alerts*, Medication List reviewed and reconciled with the patient * Allergies: S ULFA (SULFONAMIDE ANTIBIOTICS): Allergy - Onset Date 06/05/2023, Latex, Banana Cream Flavor. Objective: * Vitals: B P:114/75mm Hg, HR:89/min, Wt:216lbs, Wt-k.98 kg, Ht: 65.00 in, Ht-cm: 165.10 cm, BMI:35.94Index, Body Surface Area: 2.12. Assessment: * Assessment: 1. E ncounter for screening for depression - Z13.31 (Primary) 2 . E ncounter for screening for cardiovascular disorders - Z13.6 Plan: * Treatment: * Procedure Codes: G 8433 PT INELIG FOR DEPRESSION SCR, G8783 NORMAL BP READING DOC F/U NOT RQR, G8752 MOST RECENT SYSTOLIC BP < 140MM HG, G8754 MOST RECENT DIASTOLIC BP < 90MM HG * Billing Information: * Visit Code: * Procedure Codes: G8433 PT INELIG FOR DEPRESSION SCR. G8783 NORMAL BP READING DOC F/U NOT RQR. G8752 MOST RECENT SYSTOLIC BP < 140MM HG. G8754 MOST RECENT DIASTOLIC BP < 90MM HG. * Electronic signature of Lauri Reyes on 10/08/2024 at 11:29 AM CDT Sign off status: Pending * Provider: Carito Reyes Date: 0 09/10/2024 Generated for Terrence nice/Adilene/Atul on: 0 10/08/2024 11:29 AM CDT
--- OUTSIDE RECORDS SUMMARY | 2024-10-08 11:30 | XMS_ITS | Clinical Summary ---
Author Organization [facility] Address [address] [place] [address] Care Team Providers Care Compressor Station Engineer Chief Name Role Phone Selvin Abreu MD Unavailable [phone] Marcus Anderson DO Primary Care Provider [phone] Allergies Active Allergy Reactions Criticality Noted Date Comments Latex Sulfa (Sulfonamide Antibiotics) Medications No known medications Active Problems Problem Noted Date Diagnosed Date Candidiasis of urogenital site 11/26/2014 Overview (07/28/2016): Candidiasis of scrotum Closed fracture of femur 09/17/2013 Encounters Date Type Department Care Team Description 07/25/2024 Telephone [place] [phone] [place] [phone] Siria Morgan MD Scheduling Appointments from Last 3 Months Surgical History Surgery Date Site/Laterality Comments FOOT SURGERY Bilateral tendon repair KNEE SURGERY Left HERNIA REPAIR Medical History Medical History Date Comments Spina bifida (HCC) Hydrocephalus (HCC) Club foot left Scoliosis Social History Tobacco Use Types Packs/Day Years [...] on file 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 Gender Identity Not on file Sexual Orientation Not on file Obstetrics History Last Filed Vital Signs Vital Sign Reading Time Taken Comments Blood Pressure 111/74 05/05/2022 8:56 PM MOTOR TUNE UP SPECIALIST Pulse 86 05/05/2022 8:56 PM MOTOR TUNE UP SPECIALIST Temperature 36.6 C (97.9 F) 05/05/2022 8:56 PM MOTOR 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 UP SPECIALIST Respiratory Rate 18 05/05/2022 8:56 PM MOTOR 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 UP SPECIALIST Oxygen Saturation 95% 05/05/2022 8:56 PM MOTOR TUNE UP SPECIALIST Inhaled Oxygen Concentration - - Weight 70.3 kg (155 lb) 05/05/2022 8:56 PM MOTOR TUNE UP SPECIALIST Height 165.1 cm (5' 5) 04/12/2022 4:46 PM MOTOR TUNE UP SPECIALIST Body Mass Index 25.79 04/12/2022 4:46 PM MOTOR TUNE UP SPECIALIST Plan of Treatment Health Maintenance Due Date Last Done Comments Depression Screening 1981 Hepatitis C Screening 1981 DTaP/Tdap/Td Vaccine (5 - Tdap) 1992 07/07/1984, 08/23/1983, 02/22/1983, Additional history exists Varicella Vaccines (1 of 2 - 13+ 2-dose series) 1994 Regular Well Visit/Exam 18-64 1999 Pneumococcal vaccine <65 (2 of 2 - PCV) 10/10/2014 10/10/2013 Covid-19 Vaccine (2 - season) 2023 06/30/2020 Influenza Vaccine (Season Ended) 2024 01/22/2014 Hepatitis B Screening Completed 11/01/1995 , 04/04/1995, 06/26/1994 HPV Vaccines Aged Out No longer eligi ble based on patient's age to complete this topic [place] [address] MEDICARE [facility] MEDICARE [facility] MEDICARE Care Teams Compressor Station Engineer Chief Relationship Specialty Start Date End Date Marcus Anderson DO [address] [place], [place] [id number] PCP - General Internal Medicine 07/25/24 Selvin Abreu MD Referring Physician Internal Medicine 03/31/22
== END 2024-10-08 10:16 | disposition home or self-care (01) ==
PROVIDERS: PCP Internal Medicine; Visit Provider Internal Medicine
DX: M79.89 Other specified soft tissue disorders (principal); Z98.2 Presence of cerebrospinal fluid drainage device; R07.9 Chest pain, unspecified; M17.12 Unilateral primary osteoarthritis, left knee; J98.4 Other disorders of lung
CPT/HCPCS: 71046; 73562

== ENCOUNTER 2024-10-18 10:12 | Outpatient (CLI) | payer MEDICARE, MEDICAID, SELFPAY ==
--- NOTE | ~2024-10-18 | US_ITS ---
US venous doppler [facility] - 10/18/2024 11:19 CDT History: 44 years old Male with left lower extremity pain and swelling. Real-time sonographic images of the left lower extremity venous system were obtained. Color Doppler sonography and spectral waveform analysis were performed. No prior studies for comparison. The left sapheno-femoral junctions are patent. The left common femoral, superficial femoral, poplit eal and posterior tibial veins are compressible and without evidence of echogenic thrombus. Impression: No evidence of deep venous thrombosis Reviewed, dictated and finalized at location A. Impression: No evidence of deep venous thrombosis
== END 2024-10-18 10:13 | disposition home or self-care (01) ==
PROVIDERS: PCP Nurse Practitioner; Visit Provider Internal Medicine
DX: I87.302 Chronic venous hypertension (idiopathic) without complications of left lower extremity (principal)
CPT/HCPCS: 93971

== ENCOUNTER 2024-11-01 09:44 | Outpatient (CLI) | payer MEDICARE, MEDICAID, SELFPAY ==
--- NOTE | ~2024-11-01 | CT_ITS ---
CT of the Abdomen and Pelvis: Indication: Abdominal pain Technique: 2.5 mm axial scans were obtained through the abdomen and pelvis following intravenous adm inistration of 100 cc of Omnipaque 350. Dose reduction technique was used on this scan by utilizing a utomated exposure control and iterative reconstruction technique. The dose-length product (DLP) was 1 149.77 mGy-cm. COMPARISON: 01/04/2023 Findings: Scans through the lung bases are unremarkable. The liver, spleen, pancreas, gallbladder, adrenals and kidneys are within normal limits. No evidence of aortic aneurysm. No lymphadenopathy. No bowel obstruction or bowel wall thickening. Large fat-containing umbilical hernia present, with sm all amount of fluid in the hernia sac. No bowel involvement.. Images through the pelvis were performed. Possible mild diffuse urinary bladder wall thickening. No p elvic mass seen. [employer] RECEIVABLE shunt present without ascites. Bilateral L5 pars interarticularis defects are present, without subluxation at this time. Impression: Large fat-containing umbilical hernia small amount of fluid in the hernia sac. Cord first relation or incarceration. Possible cystitis. Correlate with urinalysis. Reviewed, dictated and finalized at location . Impression: Large fat-containing umbilical hernia small amount of fluid in the hernia sac. Cord first relation or incarceration. Possible cystitis. Correlate with urinalysis.
--- OUTSIDE RECORDS SUMMARY | 2024-11-01 09:49 | XMS_ITS ---
Author Organization [facility] Address [address] [facility] [address] [place] [address] Care Team Providers Care Rock Contractor Name Role Phone Marcus Anderson DO Primary Care Provider Cris Moreno Unavailable [phone] Allergies Allergen (clinical drug ingredient) Drug/Non Drug [...] Status TAB-A-CYNDY 400 MCG TABLET *Reorder from [employer] for eRx and Interaction Alerts* 06/05/2023 Active Baclofen 10 MG Oral 06/05/2023 Acti ve Vitamin D3 Adult Gummies 25 MCG (1000 UT) Oral 06/05/2023 Active Bisacodyl EC 5 MG Oral 06/05/2023 A ctive Chest Rub 4.8-1.2-2.6 % External 06/05/2023 Active Docusate Sodium 100 MG Oral; Duration: 15 Days Active Nystatin 122688 UNIT/GM External 06/05/2023 Active Polyethylene Glycol 3350 Oral 06/05/2023 Active Cetirizine HCl 10 MG Oral; Duration: 30 Days Active Sodkankc-Xwokgrddj-PK 3.5-07790-8 Otic 06/05/2023 Active busPIRone HCl 15 MG Oral; Duration: 31 Days Active Acetaminophen 325 MG Oral; Duration: 5 Days Active Pantoprazole Sodium 40 MG Oral; Duration: 31 Days Active Vitamin D3 125 MCG (5000 UT) Oral; Duration: 31 Days Active EC-NAPROXEN 500 MG TABLET,DELAYED RELEASE *Reorder from [facility] for eRx and Interaction Alerts* 06/05/2023 Unknown FLUoxetine HCl 40 MG 1 capsule Oral Once a day; Duration: 30 days Active ANTACID-ANTIGAS 200-200-20 mg/5 mL Oral *Reorder from [facility] for eRx and Interaction Alerts* 06/05/2023 Unknown Senna 8.6 mg Oral 06/05/2023 Unknow n Melatonin 5 MG 1 tablet at bedtime Oral Once a day; Duration: 30 days 06/05/2023 Active LORazepam 0.5 MG 1 tablet at bedtime Orally daily; Duration: 30 days make appointment for further refills 08/14/2024 Active OLANZapine 20 MG 1 tablet at bedtime Oral Once a day; Duration: 30 days Active lamoTRIgine 100 MG 1 tablet Oral twice a day; Duration: 30 days Active OLANZapine 10 MG 1 tablet in the morning Oral Once a day; Duration: 30 days Active Zinc Oxide 20 % External 06/05/2023 Act aniket Ranitidine HCl 150 MG Oral 06/05/2023 Active CHEST CONGESTION RELIEF DM 10 MG-100 MG/5 ML ORAL SYRUP *Reorder from [facility] for eRx and Interaction Alerts* 06/05/2023 Active [...] 09/10/2024 Encounters Encounter Location Date Provider Diagnosis [facility] [address] [place] [phone] 09/10/2024 Cris Hagopian Encounter for screening for depression Z13.31 and Encounter for screening for cardiovascular disorders Z13.6 Assessments Encounter Date Diagnosis (ICD Code) Assessment Notes Treatment Notes Treatment Clinical Notes Section Notes 09/10/2024 Encounter for screening for depression (ICD-10 - Z13.31) 09/10/2024 Encounter for screening for cardiovascular disorders (ICD-10 - Z13.6) Plan Of Treatment No Information Progress Notes * STANFORD WATTERSDOB:[birth year] (44 yo M)Acc No.[id number]:09/10/2024 Patient: STANFORD NORTH Provider: Carito Reyes :1980 A ge:44 Y S ex:Male Date:09/10/2024 Address:[address], [place] [facility] Pcp:Marcus Anderson DO Subjective: * Chief Complaints: [...] HCl 10 MG Tablet Oral , Taking Oqvuerkk-Cdxwguvgl-XJ 3.5-05098-5 Suspension Otic , Taking Nystatin 538416 UNIT/GM Cream External , Taking Polyethylene Glycol 3350 Powder Oral , Taking Vitamin D3 Adult Gummies 25 MCG (1000 UT) Tablet Chewable Oral , Taking TAB-A-CYNDY 400 MCG TABLET , Notes to Pharmacist: *Reorder from [employer] for eRx and Interaction Alerts*, Taking Baclofen 10 MG Tablet Oral , Taking Bisacodyl EC 5 MG Tablet Delayed Release Oral , Taking Chest Rub 4.8-1.2-2.6 % Ointment External , Taking CHEST CONGESTION RELIEF DM 10 MG-100 MG/5 ML ORAL SYRUP , Notes to Pharmacist: *Reorder from [facility] for eRx and Interaction Alerts*, Taking Vitamin [...] Oral , Notes to Pharmacist: *Reorder from [facility] for eRx and Interaction Alerts*, Unknown Senna 8.6 mg Tablet Oral , Unknown EC-NAPROXEN 500 MG TABLET,DELAYED RELEASE , Notes to Pharmacist: *Reorder from [facility] for eRx and Interaction Alerts*, Medication List [...] * Electronic signature of Lauri Reyes on 11/01/2024 at 09:49 AM CDT Sign off status: Pending * Provider: Carito Reyes Date: 0 09/10/2024 Generated for Terrence nice/Adilene/Atul on: 0 11/01/2024 09:49 AM CDT
--- OUTSIDE RECORDS SUMMARY | 2024-11-01 09:50 | XMS_ITS | Clinical Summary ---
Author Organization [facility] Address [address] [place] [address] Care Team Providers Care Phlebotomy Instructor Name Role Phone Selvin Abreu MD Unavailable [phone] Marcus Anderson DO Primary Care Provider [phone] Gianna Staley MD Unavailable [phone] Filiberto Pascual OD Unavailable [phone] Allergies Active Allergy Reactions Criticality Noted Date Comments Latex Sulfa (Sulfonamide Antibiotics) Medications busPIRone (BUSPAR) 15 mg tabletIndicatio ns:Generalized Anxiety Disorder Take 1 tablet (15 mg total) by mouth 3 (three) times a day Active cetirizine 10 mg capsule Take 1 capsule by mouth daily Active FLUoxetine (PROzac) 40 mg capsule Take 1 capsule (40 mg total) by mouth daily Active lamoTRIgine (LaMICtal) 100 mg tablet Take 1 tablet (100 mg total) by mouth daily Active LORazepam (ATIVAN) 0.5 mg tablet Take 1 tablet (0.5 mg total) by mouth nightly Active melatonin 5 mg tablet Take 1 tablet (5 mg total) by mouth nightly Active OLANZapine (ZyPREXA) 10 mg tablet Take 1 tablet (10 mg total) by mouth daily Active OLANZapine (ZyPREXA) 20 mg tablet Take 1 tablet (20 mg total) by mouth nightly Active pantoprazole DR (PROTONIX) 40 mg EC tablet Take 1 tablet (40 mg total) by mouth 2 (two) times a day Active multivitamin with folic acid 400 mcg tablet Take 1 tablet by mouth daily Active cholecalciferol (VITAMIN D-3) 5,000 unit capsule Take 1 capsule (5,000 Units total) by mouth daily Active artificial tears,hypromell ose, 0.3 % drops Administer 1 drop into affected eye(s) 3 (three) times a day 30 mL 5 10/23/19 26 Active polyvinyl alcohol (Artificial Tears, polyvin alc,) 1.4 % ophthalmic solution Administer 1 drop into both eyes 2 (two) times a day 15 mL 5 10/30/19 26 Active Active Problems Problem Noted Date Diagnosed Date Candidiasis of urogenital site 11/26/2014 Overview (07/28/2016): Candidiasis of scrotum Closed fracture of femur 09/17/2013 Encounters Date Type Department Care Team Description 10/29/2024 Telephone [facility] Ophthalmology [address] [place] [address] Siria Morgan MD 10/23/2024 Telephone [facility] Ophthalmology [facility] [place] [address] Siria Morgan MD Med Management 10/22/2024 8:30 AM CDT Office Visit [facility] Ophthalmology [address] [place] [phone] Siria Morgan MD Optic atrophy (Primary Dx); Unspecified disorder of visual pathways; Encounter for observation for other suspected diseases and conditions ruled out 10/15/2024 9:15 AM CDT Office Visit [facility] Ophthalmology [address] [place] [phone] Siria Morgan MD Optic atrophy (Primary Dx); 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 from Last 3 Months Surgical History Surgery [...] Answer Date Recorded Getting School Help Needed Denies 04/24 Sex and Gender Information Value Date Recorded Sex Assigned at Not on file Legal Sex Male 9:10 PM INTEGRATION AIDE Gender Identity Not on file Sexual Orientation Not on file Obstetrics History Last Filed Vital Signs Vital Sign Reading Time Taken Comments Blood Pressure 111/74 05/05/2022 8:56 PM INTEGRATION AIDE Pulse 86 05/05/2022 8:56 PM INTEGRATION AIDE Temperature 36.6 C (97.9 F) 05/05/2022 8:56 PM INTEGRATION AIDE Respiratory Rate 18 05/05/2022 8:56 PM INTEGRATION AIDE Oxygen Saturation 95% 05/05/2022 8:56 PM INTEGRATION AIDE Inhaled Oxygen Concentration - - Weight 70.3 kg (155 lb) 05/05/2022 8:56 PM INTEGRATION AIDE Height 165.1 cm (5' 5) 04/12/2022 4:46 PM INTEGRATION AIDE Body Mass Index 25.79 04/12/2022 4:46 PM INTEGRATION AIDE Plan of Treatment Health Maintenance Due Date Last Done Comments Depression Screening 1980 Hepatitis C Screening 1980 DTaP/Tdap/Td Vaccine (5 - Tdap) 1992 07/07/1984, 08/23/1983, 02/22/1983, Additional history exists Varicella Vaccines (1 of 2 - 13+ 2-dose series) 1994 Regular Well Visit/Exam 18-64 1999 Pneumococcal vaccine <65 (2 of 2 - PCV) 10/10/2014 10/10/2013 Covid-19 Vaccine (2 - season) 2023 06/30/2020 Influenza Vaccine (#1) 2024 01/22/2014 Hepatitis B Screening Completed 11/01/1995 , 04/04/1995, 06/26/1994 HPV Vaccines Aged Out No longer eligi ble based on patient's age to complete this topic Procedures Procedure Name Priority Date/Time Associated Diagnosis Comments OCT, RETINA - OU - BOTH EYES Routine 10/22/2024 2:50 PM CDT Optic atrophy Unspecified disorder of visual pathways Encounter for observation for other suspected diseases and conditions ruled out OCT, OPTIC NERVE - OU - BOTH EYES Routine 10/22/2024 2:50 PM CDT Optic atrophy Unspecified disorder of visual pathways Encounter for observation for other suspected diseases and conditions ruled out ROBLES VISUAL FIELD - OU - BOTH EYES Routine 10/22/2024 2:50 PM CDT Optic atrophy Unspecified disorder of visual pathways Encounter for observation for other suspected diseases and conditions ruled out from Last 3 Months Results * OCT, Retina - OU - Both Eyes (10/22/2024 2:50 PM CDT) Anatomical Region Laterality Modality Head Optical Coherenc e Tomography Narrative 10/22/2024 2:50 PM CDT Diffuse ganglion cell complex thinning OU, with mean GCC thickness: 45 microns OD, 42 microns OS (on Zeiss Cirrus OCT) us Siria Morgan MD OPHTH TOMOGRAPHY Final Resu lt * OCT, Optic Nerve - OU - Both Eyes (10/22/2024 2:50 PM CDT) RNFL OS 59 micrometers CONTINUUM RNFL OD 55 micrometers CONTINUUM Anatomical Region Laterality Modality Head Optical Coherenc e Tomography Narrative 10/22/2024 2:50 PM CDT Right Eye Reliability was good. Average RNFL thickness 55 micrometers. Left Eye Reliability was good. Average RNFL thickness 59 micrometers. Notes RNFL thinning OU (Performed on Zeiss Cirrus OCT) us Siria Morgan MD OPHTH TOMOGRAPHY Final Resu lt * Robles Visual Field - OU - Both Eyes (10/22/2024 2:50 PM CDT) Anatomical Region Laterality Modality Head Visual Field Narrative 10/22/2024 2:50 PM CDT Superior > inferior, OD>OS losses us Siria Morgan MD OPHTH VISUAL FIELD Final Re sult from Last 3 Months Insurance [facility] MEDICARE [facility] MEDICARE IDCT MEDICARE Care Teams Phlebotomy Instructor Relationship Specialty Start Date End Date Marcus Anderson DO [address] [facility] [address] [place], [place] [id number] PCP - General Internal Medicine 07/25/24 Selvin Abreu MD Referring Physician Internal Medicine 03/31/22 Gianna Staley MD [address] [place] [address] Nurse Practitioner Neurosurgery 10/22/24 Filiberto Pascual OD [address] [address] Referring Physician Optometry 10/23/24
--- OUTSIDE RECORDS SUMMARY | 2024-11-01 09:50 | XMS_ITS | Referral Summary ---
Author Organization [facility] Address [address] [place] [address] Care Team Providers Care Social Organization Professor Name Role Phone Selvin Abreu MD Unavailable [phone] Marcus Anderson DO Primary Care Provider [phone] Gianna Staley MD Unavailable [phone] Filiberto Pascual Unavailable [phone] Encounters Date Type Department Care Team Description 10/29/2024 Telephone [facility] Ophthalmology [address] [place] [address] Siria Morgan MD 10/23/2024 Telephone [facility] Ophthalmology [facility] [place] [address] Siria Morgan MD Med Management 10/22/2024 8:30 AM CDT Office Visit [facility] Ophthalmology [address] [place] [phone] Siria Morgan MD Optic atrophy (Primary Dx); Unspecified disorder of visual pathways; Encounter for observation for other suspected diseases and conditions ruled out 10/15/2024 9:15 AM CDT Office Visit [facility] Ophthalmology [address] [place] [phone] Siria Morgan MD Optic atrophy (Primary Dx); 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 from Last 3 Months Allergies Active Allergy [...] on file Legal Sex Male 9:10 PM WAITRESS Gender Identity Not on file Sexual Orientation Not on file Last Filed Vital Signs Vital Sign Reading Time Taken Comments Blood Pressure 111/74 05/05/2022 8:56 PM WAITRESS Pulse 86 05/05/2022 8:56 PM WAITRESS Temperature 36.6 C (97.9 F) 05/05/2022 8:56 PM WAITRESS Respiratory Rate 18 05/05/2022 8:56 PM WAITRESS Oxygen Saturation 95% 05/05/2022 8:56 PM WAITRESS Inhaled Oxygen Concentration - - Weight 70.3 kg (155 lb) 05/05/2022 8:56 PM WAITRESS Height 165.1 cm (5' 5) 04/12/2022 4:46 PM WAITRESS Body Mass Index 25.79 04/12/2022 4:46 PM WAITRESS Plan of Treatment Not on file Procedures Procedure Name Priority Date/Time Associated Diagnosis [...] Re sult from Last 3 Months Insurance [facility] MEDICARE [place] MEDICARE [place] MEDICARE Care Teams Social Organization Professor Relationship Specialty Start Date End Date Marcus Anderson DO [address] [place] [address] PCP - General Internal Medicine 07/25/24 Selvin Abreu MD Referring Physician Internal Medicine 03/31/22 Gianna Staley MD [address] [place] [address] Nurse Practitioner Neurosurgery 10/22/24 Filiberto Pascual OD [facility] [address] [facility] [address] [place] [address] Referring Physician Optometry 10/23/24
--- OUTSIDE RECORDS SUMMARY | 2024-11-01 09:50 | XMS_ITS | Clinical Summary ---
Author Organization [facility] Address [address] [place] [address] Care Team Providers Care Intermodal Owner Operator Truck Driver Name Role Phone Marcus Anderson DO Primary Care Provider [phone] Source Comments [facility],non-owned Affiliates and Associated Physician Practices is amultiple site organization consisting of ambulatory clinics and hospital sitesin [place], [place], [place] and [place]. This disclosure is being madepursuant to the Care Everywhere program and may not contain all information available regarding this patient. Last updated 18.[facility] Allergies Active Allergy Reactions Criticality Noted Date [...] MG tablet 4 Active neomycin-polymy julissa-hc (Cortisporin) 3.5-57238-8 otic solution 3 Active zinc oxide 20 % ointment as needed 3 Active traMADol (Ultram) 50 MG tablet Take 1 tablet every 6 hours by oral route. Active neomycin-polymy julissa-hc (Cortisporin) 3.5-06056-6 otic suspension 4 Active lamoTRIgine (LaMICtal) 100 MG tablet 4 Active cetirizine (ZyrTEC) 10 MG tablet 4 Active camphor-eucalyp wax-emybsxl-yup p oil-white pet (Vicks Vaporub) 4.8-1.2-2.6 % [...] Date Diagnosed Date Major depression, recurrent 10/08/2013 Immunizations Immunization Administration Dates Next Due PNEUMOCOCCAL [...] on file Legal Sex Male 6:58 PM UTILIZATION MANAGEMENT MANAGER Gender Identity Not on file Sexual Orientation [...] of 3 - 19+ 3-dose series) 2000 HPV VACCINE (1 - 3-dose SCDM series) 2008 PNEUMOCOCCAL VACCINE (2 of 2 - PCV) 10/10/2014 10/10/2013 COVID-19 VACCINE (2 - season) 2023 06/30/2020 DEPRESSION SCREENING 04/24/2024 INFLUENZA VACCINE (#1) 2024 01/22/2014 SCREENING FOR DIABETES 03/21/2027 , [...] COMPREHENSIVE METABOLIC PANEL (10/07/2013 2:44 PM CDT) [facility] Glucose 102 70 - 125 mg/dL 10/07/2013 3:11 PM CDT [facility] Sodium 144 136 - 145 mmol/L 10/07/2013 3:11 PM CDT [facility] Potassium 4.5 3.4 - 4.5 mmol/L 10/07/2013 3:11 PM CDT [facility] Chloride 108(H) 98 - 107 mmol/L 10/07/2013 3:11 PM CDT [facility] CO2 25 22 - 29 mmol/L 10/07/2013 3:11 PM CDT [facility] Calcium 9.7 8.4 - 10.2 mg/dL 10/07/2013 3:11 PM [facility] Anion Gap 16 10 - 20 mmol/L 10/07/2013 3:11 PM T [facility] BUN 13.6 8.4 - 25.7 mg/dL 10/07/2013 3:11 PM T [facility] Creatinine 1.03 0.72 - 1.25 mg/dL 10/07/2013 3:11 PM [facility] eGFR by MDRD >60 >60 mL/min/1.7 3m2 10/07/2013 3:11 PM [facility] eGFR by MDRD >60 >60 mL/min/1.7 3m2 10/07/2013 3:11 PM [facility] Alkaline Phosphatase 80 40 - 150 U/L 10/07/2013 3:11 PM T [facility] ALT 14 5 - 55 U/L 10/07/2013 3:11 PM [facility] AST 14 5 - 34 U/L 10/07/2013 3:11 PM [facility] Protein Total 7.4 6.4 - 8.3 gm/dL 10/07/2013 3:11 PM [facility] Albumin 4.0 3.5 - 5.0 gm/dL 10/07/2013 3:11 PM [facility] Globulin Total 3.4 2.6 - 4.0 gm/dL 10/07/2013 3:11 PM T [facility] Albumin/Globulin Ratio 1.2 0.9 - 1.6 10/07/2013 3:11 PM T [facility] Bilirubin Total 0.3 0.2 - 1.2 mg/dL 10/07/2013 3:11 PM T [facility] Blood BLOOD SPECIMEN / Unknown Lab Venipuncture / Unknown 10/07/2013 2:44 PM CDT 10/07/2013 2:47 PM CDT Sara Sparrow MD LAB - CHEMISTRY ORDERABLES Ana Paula villavicencio Result [facility] [address] from Last 3 Months or Most Recently Relevant to Health Maintenance Insurance MEDICARE MEDICARE MEDICAID - [place] MEDICARE Advance Directives Documents on File Type Date Recorded 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
--- OUTSIDE RECORDS SUMMARY | 2024-11-01 09:50 | XMS_ITS | Clinical Summary ---
Author Organization [facility] Address [facility] [place] [address] Care Team Providers Care Spa Assistant Manager Name Role Phone Darin Power NP Primary Care Provider Allergies Active Allergy Reactions Criticality Noted Date Comments Albumin Human Rash Low 10/07/2013 Banana Unknown 04/16/2021 Latex Throat swelling 04/16/2021 Mercury Rash Low 10/07/2013 Sulfa Antibiotics Unknown 04/16/2021 Medications polyethylene glycol (MIRALAX) 17 GM/SCOOP powder take (34G) by oral route every day mixed with 8 oz. water, juice, soda, coffee or tea for Constipation 9 Active sennosides (SENNA-TIME) 8.6 MG Tab tablet Take 1 tablet by mouth daily. 9 Active FLUoxetine 40 MG capsule Take 40 mg by mouth daily. Active LORazepam 0.5 MG tablet Take 1 tablet (0.5 mg total) by mouth every 12 (twelve) hours as needed for Anxiety. Active melatonin 5 MG tablet Take 5 mg by mouth nightly as needed. Active OLANZapine (ZYPREXA) 10 MG tablet Take 1 tablet (10 mg total) by mouth nightly at bedtime. Active pantoprazole EC 40 MG tablet Take 1 tablet (40 mg total) by mouth 2 (two) times a day. Active multiple vitamin Tab Take 1 tablet by mouth daily. Active cholecalciferol (VITAMIN D3) 125 MCG (5000 UT) Tab Take 5,000 Units by mouth daily. Active busPIRone (BUSPAR) 15 MG tablet Take 1 tablet (15 mg total) by mouth daily. Active cetirizine (ZYRTEC) 10 MG tablet Take 1 tablet (10 mg total) by mouth daily. Active lamoTRIgine (LAMICTAL) 100 MG tablet Take 1 tablet (100 mg total) by mouth 2 (two) times daily. Active neomycin-polymy julissa-hydrocortis one otic solution Place into both ears 4 (four) times daily. Active Active Problems Problem Noted Date Diagnosed Date Bipolar disorder ([facility]) 10/11/2018 Chronic depression 10/11/2018 Gastroesophageal reflux disease 10/11/2018 Intellectual functioning disability 10/11/2018 Anxiety disorder 10/11/2018 Posttraumatic stress disorder 10/11/2018 Psychotic disorder ([facility]) 10/11/2018 Spina bifida ([facility]) 10/11/2018 Major depression, recurrent 10/08/2013 Immunizations Immunization Administration Dates Next Due Dtp (Generic) 07/07/1984, 4,02/22/1983,1981,1981 Hepatitis B Pediatric 11/01/1995,04/04/1995,08/1994 CribFrog (CHIO & Fix8) COVID-19 AD26 VACCINE 0.5 ML IM SUSP 06/30/2020 MMR (MMRII) 11/05/1990,08/22/1982 Pneumococcal (Pneumovax 23) 10/10/2013 Polio Opv (Generic) 07/07/1984, 4,02/22/1983,1981,1981 Family History Medical History Relation Comments Diabetes Father Hypertension Father Diabetes Mother Hypertension Mother Relation Status Comments Father Alive Mother Alive Social History Tobacco Use Types Packs/Day Years Used Date Smoking Tobacco: Every Day Cigarettes Smokeless Tobacco: Never Tobacco Cessation:Ready to Q uit: Not Asked; Counseling Given: Not Answered Alcohol Use Standard Drinks/Week Comments Never 0 (1 standard drink = 0.6 oz pur e alcohol) Sex and Gender Information Value Date Recorded Sex Assigned at Not on file Legal Sex Male 6:42 PM CDT Gender Identity Not on file Sexual Orientation Not on file Last Filed Vital Signs Vital Sign Reading Time Taken Comments Blood Pressure 122/75 03/21/2024 9:00 PM CATHODE RAY TUBE SALVAGE PROCESSOR Pulse 97 03/21/2024 9:00 PM CATHODE RAY TUBE SALVAGE PROCESSOR Temperature 36.5 C (97.7 F) 03/21/2024 5:48 PM CATHODE RAY TUBE SALVAGE PROCESSOR Respiratory Rate 21 03/21/2024 9:00 PM CATHODE RAY TUBE SALVAGE PROCESSOR Oxygen Saturation 95% 03/21/2024 9:00 PM CATHODE RAY TUBE SALVAGE PROCESSOR Inhaled Oxygen Concentration - - Weight 81.6 kg (180 lb) 07/07/2023 7:28 PM CDT Height 165.1 cm (5' 5) 07/07/2023 7:28 PM CDT Body Mass Index 29.95 07/07/2023 7:28 PM CDT Plan of Treatment Health Maintenance Due Date Last Done Comments Annual Physical 1984 DTaP, Tdap and Td Vaccines (5 - Tdap) 1992 07/07/1984, 08/23/1983, 02/22/1983, Additional history exists Hepatitis C 1999 Pneumococcal Vaccine: Pediatrics (0 to 5 Years) and At-Risk Patients (6 to 49 Years) (2 of 2 - PCV) 10/10/2014 10/10/2013 COVID-19 Vaccine (2 - season) 2023 06/30/2020 Hepatitis B Vaccines Completed 11/01/1995, 04/04/1995, 06/26/1994 HPV Vaccines Aged Out No longer eligi ble based on patient's age to complete this topic Meningococcal B Vaccine Aged Out No l onger eligible based on patient's age to complete this topic Meningococcal Vaccine Aged Out No landy andrzej eligible based on patient's age to complete this topic RSV Immunizations Under 20 Months Aged Out No longer eligible based on patient's age to complete this topic Insurance MEDICARE MEDICAID Care Teams Spa Assistant Manager Relationship Specialty Start Date End Date Darin Power NP [address] [facility] [address] [place] [address] PCP - General NURSE PRACTITIONER 03/21/24
--- OUTSIDE RECORDS SUMMARY | 2024-11-01 09:50 | XMS_ITS | Patient Health Record ---
Author Organization [facility] [employer] Address [address] [facility] [address] [place] [address] Care Team Providers Care Technical Writer And Editor Name Role Phone Marcus Anderson DO Primary Care Provider UnavailCris Salazar Unavailable [phone] Allergies Allergen (clinical drug ingredient) Drug/Non Drug [...] a day; Duration: 30 days 06/05/2023 Active Ztxlaanu-Kykjsoior-L C 3.5-00877-8 Otic 06/05/2023 Active OLANZapine 5 MG 2 tablets once a day for 7 days, 1 tablet once a day for 14 days Orally; Duration: 21 days taper off 09/10/2024 Active EC-NAPROXEN 500 MG TABLET,DELAYED RELEASE *Reorder from [employer] for eRx and Interaction Alerts* 06/05/2023 Unknown lamoTRIgine 100 MG 1 tablet Oral twice a day; Duration: 30 days Active Senna 8.6 mg Oral 06/05/2023 Unknow n FLUoxetine HCl 40 MG 1 capsule Oral Once a day; Duration: 30 days Active ARIPiprazole 10 MG 0.5 tablet once a day for 7 days, 1 tablet once a day for 23 days Orally; Duration: 30 days 09/10/2024 Active OLANZapine 20 MG 1 tablet once a day for 14 days, 0.5 tablet once a day for 16 days Oral; Duration: 30 days reducing, cross taper to aripiprazole Active Vitamin D3 Ultra Strength 125 MCG (5000 UT) Oral 06/05/2023 Active TAB-A-CYNDY 400 MCG TABLET *Reorder from [facility] for eRx and Interaction Alerts* 06/05/2023 Active Vitamin D3 Adult Gummies 25 MCG (1000 UT) Oral 06/05/2023 Active Polyethylene Glycol 3350 Oral 06/05/2023 Active Nystatin 962481 UNIT/GM External 06/05/2023 Active CHEST CONGESTION RELIEF DM 10 MG-100 MG/5 ML ORAL SYRUP *Reorder from [facility] for eRx and Interaction Alerts* 06/05/2023 Active Chest Rub 4.8-1.2-2.6 % External 06/05/2023 Active Bisacodyl EC 5 MG Oral 06/05/2023 A ctive Baclofen 10 MG Oral 06/05/2023 Acti ve Ranitidine HCl 150 MG Oral 06/05/2023 Active Magnesium Citrate 1.745 GM/30ML Oral 06/05/2023 Active LORazepam 0.5 MG 1 tablet at bedtime Orally Once a day; Duration: 30 days 09/10/2024 Active Cetirizine HCl 10 MG Oral; Duration: 30 Days Active Docusate Sodium 100 MG Oral; Duration: 15 Days Active Zinc Oxide 20 % External 06/05/2023 Act aniket Acetaminophen 325 MG Oral; Duration: 5 Days Active ANTACID-ANTIGAS 200-200-20 mg/5 mL Oral *Reorder from [facility] for eRx and Interaction Alerts* 06/05/2023 Unknown Vitamin D3 125 MCG (5000 UT) Oral; Duration: 31 Days Active LORazepam 0.5 MG 1 tablet at bedtime Orally daily; Duration: 30 days make appointment for further refills 08/14/2024 Active Pantoprazole Sodium 40 MG Oral; Duration: 31 Days Active busPIRone HCl 15 MG Oral; Duration: 31 Days Active Immunizations Vaccine Route Administration [...] NoDo you have a medical power of prosecuting attorney?: No Social History Substance UseDo you [...] NoDo you have a medical power of prosecuting attorney?: No Social History Substance UseDo you [...] NoDo you have a medical power of prosecuting attorney?: No Problems Problem Type SNOMED Code ICD Code Onset Dates Problem Status W/U Status Risk Notes Problem Generalized anxiety disorder (40741345) Generalized anxiety disorder (F41.1) 4 Active confirmed Problem Mild mental retardation (Intelligence Quotient 50-70) (62053135) Mild intellectual disabilities (F70) 4 Active confirmed Problem Bipolar I disorder (085330038) Bipolar I disorder (F31.9) Active confirmed Problem Persistent insomnia (118927647) Persistent insomnia (G47.00) Active confirmed Vital Signs Heart Rate 94 /min 09/10/2024 Height-cm 165.10 cm 09/10/2024 Blood pressure diastolic 69 mm Hg 09/10/2024 Weight-kg 99.61 kg 09/10/2024 Height 65.00 in 09/10/2024 Blood pressure systolic 107 mm Hg 09/10/2024 Weight 219.6 lbs 09/10/2024 BMI 36.54 kg/m2 09/10/2024 Encounters Encounter Location Date Provider Diagnosis [facility] [employer] [facility] [address] [facility] [address] [place] [address] 03/25/2024 Cris Reyes Bipolar I disorder F31.9 ; Generalized anxiety disorder F41.1 ; Persistent insomnia G47.00 and Mild intellectual disabilities F70 [facility] [address] [facility] [address] [place] [address] 06/25/2024 Cris Reyes [facility] [address] [facility] [address] [place] [address] 09/10/2024 Cris Reyes Bipolar I disorder F31.9 ; Generalized anxiety disorder F41.1 ; Persistent insomnia G47.00 ; Mild intellectual disabilities F70 ; Encounter for screening for cardiovascular disorders Z13.6 ; Nicotine use Z72.0 and Encounter for screening for depression Z13.31 [facility] [address] [address] 10/08/2024 Cris Reyes [place] [address] [address] 11/29/2023 Cris Reyes [facility] [address] [address] 03/13/2024 Cris Reyes Generalized anxiety disorder F41.1 [facility] [address] [address] 03/18/2024 Cris Reyes Generalized anxiety disorder F41.1 [facility] [address] [address] 04/01/2024 Cris Reyes [facility] [address] [address] 08/14/2024 Cris Reyes Assessments Encounter Date Diagnosis (ICD Code) Assessment Notes Treatment Notes Treatment Clinical Notes Section Notes 03/25/2024 Bipolar I disorder (ICD-10 - F31.9) [...] inability to fall asleep, feels related to BANANA CARRIER shunt which he plans of follow up [...] management of swelling of the leg and BANANA CARRIER shunt concerns Schedule a follow-up appointment in 3 months to monitor the patient's mental health and medication effectiveness. 03/13/2024 Generalized anxiety disorder (ICD-10 - F41.1) [...] - Monitor for changes in mood, agitation, sedation/fatigue, sleep disturbances - Follow up appointment 4 weeks 09/10/2024 Generalized anxiety disorder (ICD-10 - F41.1) [...] inability to fall asleep, feels related to BANANA CARRIER shunt which he plans of follow up [...] management of swelling of the leg and BANANA CARRIER shunt concerns Schedule a follow-up appointment in 3 months to monitor the patient's mental health and medication effectiveness. 03/25/2024 Persistent insomnia (ICD-10 - G47.00) Assessment [...] inability to fall asleep, feels related to BANANA CARRIER shunt which he plans of follow up [...] management of swelling of the leg and BANANA CARRIER shunt concerns Schedule a follow-up appointment in 3 months to monitor the patient's mental health and medication effectiveness. 09/10/2024 Persistent insomnia (ICD-10 - G47.00) continue melatonin 5 mg at bedtime practice good sleep hygiene 09/10/2024 Mild intellectual disabilities (ICD-10 - F70) [...] inability to fall asleep, feels related to BANANA CARRIER shunt which he plans of follow up [...] management of swelling of the leg and BANANA CARRIER shunt concerns Schedule a follow-up appointment in 3 months to monitor the patient's mental health and medication effectiveness. 09/10/2024 Encounter for screening for cardiovascular disorders (ICD-10 - Z13.6) 09/10/2024 Nicotine use (ICD-10 - Z72.0) 09/10/2024 Encounter for screening for depression (ICD-10 - Z13.31) 09/10/2024 Other - Recommend attending primary care follow-up on the - Check cholesterol levels - Check A1c - Evaluation of lower extremity edema, cardiac workup - If primary care does not perform labs, consider ordering at next psychiatric visit Plan Of Treatment No Information Insurance Providers Payer Name Payer Address Payer Phone Subscriber Number Group Number Insured Name Patient Relationship to Insured Coverage Start Date Coverage End Date Medicare-I l Medicare [address] [place] [address] [id number] JOHN STANFORD GOMEZ Self - patient is the insured Medicaid-I l Medicaid [address] [address] [place] [address] [id number] JOHN STANFORD GOMEZ - patient is the insured Medical (General) History Medical History History ICD Code Problems: Generalized anxiety disorder Insomnia Intellectual functioning disability Long-term current use of drug therapy Mixed bipolar affective disorder, modera te Nicotine dependence Obesity Persistent insomnia Posttraumatic stress disorder Smoker Spina bifida , Surgical History Surgery Date(Month/Year) Any surgical history
== END 2024-11-01 09:45 | disposition home or self-care (01) ==
PROVIDERS: PCP Nurse Practitioner; Visit Provider Nurse Practitioner
DX: R10.32 Left lower quadrant pain (principal); K42.9 Umbilical hernia without obstruction or gangrene
CPT/HCPCS: 74177; Q9967